=== PATIENT | female | born 1960 | race Caucasian/White ===

== ENCOUNTER 2016-05-13 17:34 | Inpatient (IN) ==
[2016-05-13] MEDS ORDERED: ASPIRIN PO ONE (18:11)
[2016-05-13] MEDS ORDERED: G.I. COCKTAIL PO ONE (18:11)
--- NOTE | 2016-05-13 18:17 | PROVIDER DOCUMENTATION ---
HPI-Chest Pain <Julio Simms - Last Filed: 05/13/16 21:02> - General Source: patient, family - History of Present Illness-CP Location: reports: central Chest Pain Radiation: reports: shoulders, back Quality of Pain: reports: dull Severity in ED: mild Onset/Duration: this morning Timing: still present, constant, getting worse Context/Activities at Onset: reports: none. denies: light activity, moderate activity, vigorous activity, recent emotional stress, recent physical stress, recent trauma history, possible bad food, cold exposure, eating, out of country travel, rest, sleep, sexual activity, other Modifying Factors: improves with: nothing. worse with: analgesics, antacids, breathing, cold/heat therapy, coughing, defecating, eating, exercise, immobilization, lying down, massage, movement, other medication, palpation, rest , urinating, vomiting, other Associated Symptoms: reports: back pain, dizziness, fatigue, nausea, vomiting, weakness. denies: abdominal pain, diaphoresis, edema, fever/chills, headache, heartburn, rash, shortness of breath, swelling/lump in chest, syncope Nitro Today/Relief: no nitro taken today Aspirin Treatment Today: no aspirin today, provided by ED Prior Chest Pain/Cardiac Workup: reports: heart attack Similar Symptoms Previously?: Yes Recently Seen Here or By Another Healthcare Provider: No <Walker العراقي - Last Filed: 05/13/16 22:51> - General Chief Complaint: Weakness Stated Complaint: WEAKNESS/DIZZINESS Time Seen by Provider: 05/13/16 17:59 Allergies/Adverse Reactions: Patient Allergies Allergy/AdvReac Type Severity Reaction Status Date / Time ketorolac tromethamine * Allergy Intermediate DIZZINESS Verified 02/15/15 18:38 [From Toradol] Sulfa (Sulfonamide Allergy Intermediate RASH Verified 02/15/15 18:38 Antibiotics) Iodinated Contrast Media - Allergy Unknown ANAPHYLAXIS Verified 02/15/15 18:38 Oral and Home Medications: Aspirin 81 mg PO DAILY 05/01/12 Lisinopril/Hydrochlorothiazide [Lisinopril-Hctz 20-12.5 mg Tab] 1 tab PO QAM Metformin E.r. [Glucophage Xr] 500 mg PO DIRECTED 05/13/16 Ranitidine [Zantac] 150 mg PO DAILY 05/13/16 - History of Present Illness-CP Nature of Presenting Problem: 55 year old WF presents with c/o weakness, fatigue, malaise for 2-3 days with development of a dull chest pain that was present upon awakening. pt reports the chest pain is dull, constant, worse at times, no change with inspiration/ expiration, movement/palpation. pt reports she has a feeling of her "heart racing during the worse periods." with associated dizziness. pt reports the chest pain radiates to between her shoulder blades, bilateral jaws and left arm. pt reports this is the same discomfort she had in 2011 when she had an ME with 2 stents placed. additional complaints include a 50 lb weight loss in the last month, without intention. denies bloody, tarry, black stools, blood in emesis. pt reports intermittent vomiting over the last 3 days. pt has a history of chronic mid back pain, however the pain between her shoulder is different than her chronic pain. pt also (Walker العراقي) Review of Systems - Adult - REVIEW OF SYSTEMS - ADULT Constitutional: reports: see HPI, fatique, weight loss. denies: chills, fever Eyes: reports: no symptoms reported. denies: discharge, decreased vision, blurred vision, double vision Ears, Nose, Mouth & Throat: reports: no symptoms reported. denies: ear discharge, ear pain, nose pain, loose teeth, throat pain, throat swelling Cardiovascular: reports: see HPI, chest pain, palpitations. denies: edema, heart murmur, irregular heart rate, orthopnea, poor circulation, PND, syncope Respiratory: reports: no symptoms reported. denies: chronic cough, cough, shortness of breath, wheezing Gastrointestinal: reports: see HPI, nausea, poor appetite, vomiting. denies: abdominal pain, difficulty swallowing, frequent heartburn Genitourinary: reports: no symptoms reported. denies: dysuria, hematuria, urgency Musculoskeletal: reports: see HPI, back pain. denies: bone pain, frequent leg cramps, joint pain, joint swelling, muscle aches, muscle weakness, neck pain Integumentary: reports: no symptoms reported. denies: hives, itching, rash Neurological: reports: see HPI, dizziness/vertigo. denies: ataxia, headache/ migraines, loss of balance, numbness, paresthesia, seizure, slurred speech, syncope, tremors Psychiatric: reports: no symptoms reported, anxiety, anti-depressant use, depression, panic attacks. denies: alcohol/drug dependence, suicidal thoughts Endocrine: reports: no symptoms reported. denies: cold intolerance, heat intolerance, increased hunger, increased thirst, polyuria Hematologic/Lymphatic: reports: no symptoms reported. denies: blood clots, prolonged bleeding Allergic/Immunologic: reports: no symptoms reported. denies: frequent infections All Other Systems: Reviewed and Negative <Walker العراقي - Last Filed: 05/13/16 22:51> Past History - Adult - PAST MEDICAL HISTORY-ADULT Review of Records: reports: Old Records Reviewed, Nursing Assessment Review, Medications Reviewed, Social history reviewed & non-contributory. Major Childhood Illnesses: reports: denies history Cardiovascular: reports: cardiac disease, CAD, HTN, hyperlipidemia, ME Respiratory: reports: denies history Gastrointestinal: reports: GERD Obstetrical/Gynecological: reports: denies history Genitourinary: reports: denies history Musculoskeletal: reports: denies history Neurological: reports: denies history Endocrine/Immune: reports: denies history Other Conditions: reports: denies history - PRIOR SURGERIES/PROCEDURES Surgical/Procedure History: reports: appendectomy, cholecystectomy, cardiac stent, hysterectomy, , orthopedic (extremity) (right ankle), other ( reconstructive facial surgery) - PRIOR HOSPITALIZATIONS Prior Hospitalizations: reports: for similar symptoms - IMMUNIZATION STATUS Childhood Immunizations: See Nurse Assessment Flu Vaccine: See Nurse Assessment - FAMILY HISTORY Family History: reviewed, not pertinent - SOCIAL HISTORY Smoking: quit greater than 1 year, cigarettes Substance Use: none/never Alcohol Use Frequency: never <Walker العراقي - Last Filed: 05/13/16 22:51> Physical Exam-General - PHYSICAL EXAM-ADULT Initial Vital Signs Reviewed: Yes - CONSTITUTIONAL General Appearance: appears well, alert, no apparent distress. negative: mild distress, moderate distress, severe distress, lethargic, slow to respond, obtunded, combative - EYES Eyes: pink conjunctivae. negative: conjuctival exudate, pale conjunctivae, sclera injected, scleral icterus, subconjunctival hemorrhage - HEAD, EARS, NOSE, MOUTH & THROAT HENMT: normocephalic/atraumatic, moist mucous membranes, normal ENT inspection - NECK Neck: non-tender, full range of motion, supple, normal inspection. negative: limited range of motion, tender lateral, tender midline - RESPIRATORY Respiratory: chest non-tender, lungs clear, normal breath sounds, no pleuratic chest pain, no respiratory distress, no accessory muscle use. negative: respiratory distress, decreased breath sounds, accessory muscle use, crackles, rales, rhonchi, stridor, wheezing - CARDIOVASCULAR Cardiovascular: normal peripheral pulses, regular rate, rhythm, no edema. negative: bradycardia, tachycardia, diastolic murmur, systolic murmur - CHEST (BREASTS) Chest/Breast: no tenderness. negative: tenderness - GASTROINTESTINAL (ABDOMEN) Abdominal Exam: normal bowel sounds, soft, tenderness (epigastric). negative: non tender, distended, guarding, rigid, rebound, McBurney's point tenderness, Hines's sign, obturator sign, psoas, Rovsing's sign - GENITOURINARY Female Genitalia/Pelvic Exam: deferred Rectal Exam: deferred Hemoccult Exam: deferred - LYMPHATIC Lymphatic: no adenopathy - MUSCULOSKELETAL Back Exam: normal inspection, no CVA tenderness, no vertebral tenderness. negative: CVA tenderness, decreased range of motion, vertebral tenderness Extremity: normal range of motion, non-tender, normal gait, normal inspection, no pedal edema, no calf tenderness, normal capillary refill. negative: deformity, erythema, inflammation Peripheral Pulses: radial (R): 3+, radial (L): 3+, dorsalis-pedis (R): 3+, dorsalis-pedis (L): 3+ - SKIN Integumentary: normal color, normal turgor, warm/dry. negative: pallor, petechiae, purpura, rash - NEUROLOGIC Neurologic: grossly normal, no motor/sensory deficits. negative: abnormal gait , aphasia, facial droop, focal weakness, motor weakness, sensory deficit - PSYCHIATRIC Psych/Mental Status: normal mood/affect, normal thought content, normal thought process, oriented x 3 <Walker العراقي - Last Filed: 05/13/16 22:51> Progress - EKG 1 Time of EKG reading by physician:: 20:58 EKG Read and Signed by:: Conrad Gottlieb EKG Interpretation (*Must complete 3 of following elements*): Abnormal Rate: 58 Rhythm: SINUS BRADYCARDIA [place]: normal QRS: normal [place] Interval: normal ST Wave: normal <Julio Simms - Last Filed: 05/13/16 21:02> - REASSESSMENT Reassessment #1 Time Reassessed: 20:44 Status: unchanged - XRAY 1 XRAY Study: Chest Impression: Normal (per Dr. Gottlieb) - CONSULTS/PCP/HOSPITALIST Notification #1 *Consult/PCP/Hospitalist*: Dr. Wallace Time Discussed: 21:40 Consult Disposition: Admit (will evaluate in the AM) <Walker العراقي - Last Filed: 05/13/16 22:51> - PLAN OF CARE/RESULTS Progress/Plan/Lab Results: Laboratory Tests 05/13/16 05/13/16 05/13/16 16:30 16:30 16:30 WBC RBC Hgb Hct MCV MCH MCHC RDW Std Deviation Plt Count MPV Immature Gran % (Auto) Neut % (Auto) Lymph % (Auto) [place] % (Auto) Eos % (Auto) Baso % (Auto) Immature Gran # (Auto) Neut # Lymph # [place] # Eos # Baso # D-Dimer Sodium 132 L Potassium 3.8 Chloride 98 Carbon Dioxide 24 L Anion Gap 10 BUN 9 Creatinine 0.8 Estimated GFR/1.73 m2 > 60 BUN/Creatinine Ratio 11 Glucose 109 H Calculated Osmolality 264 Calcium 9.0 Magnesium 2.0 Total Bilirubin 0.30 AST 31 H ALT 29 Alkaline Phosphatase 73 Creatine Kinase 52 Troponin T < 0.010 Amy-B-Vejmsvgwlah Pept 49 Total Protein 7.0 Albumin 3.9 Globulin 3.0 Albumin/Globulin Ratio 1.0 Amylase Lipase TSH 05/13/16 05/13/16 05/13/16 16:30 16:30 16:30 WBC 7.13 RBC 4.71 Hgb 15.0 Hct 43.8 MCV 93.0 MCH 31.8 H MCHC 34.2 RDW Std Deviation 12.9 Plt Count 224 MPV 8.8 Immature Gran % (Auto) 0.1 Neut % (Auto) 56.8 Lymph % (Auto) 34.5 [place] % (Auto) 6.2 Eos % (Auto) 2.0 Baso % (Auto) 0.4 Immature Gran # (Auto) 0.01 Neut # 4.05 Lymph # 2.46 [place] # 0.44 Eos # 0.14 Baso # 0.03 D-Dimer Sodium Potassium Chloride Carbon Dioxide Anion Gap BUN Creatinine Estimated GFR/1.73 m2 BUN/Creatinine Ratio Glucose Calculated Osmolality Calcium Magnesium Total Bilirubin AST ALT Alkaline Phosphatase Creatine Kinase Troponin T Jpe-F-Utfrmtiammg Pept Total Protein Albumin Globulin Albumin/Globulin Ratio Amylase 59 Lipase 55 TSH 0.87 05/13/16 18:30 WBC RBC Hgb Hct MCV MCH MCHC RDW Std Deviation Plt Count MPV Immature Gran % (Auto) Neut % (Auto) Lymph % (Auto) [place] % (Auto) Eos % (Auto) Baso % (Auto) Immature Gran # (Auto) Neut # Lymph # [place] # Eos # Baso # D-Dimer 0.37 Sodium Potassium Chloride Carbon Dioxide Anion Gap BUN Creatinine Estimated GFR/1.73 m2 BUN/Creatinine Ratio Glucose Calculated Osmolality Calcium Magnesium Total Bilirubin AST ALT Alkaline Phosphatase Creatine Kinase Troponin T [id number] Pept Total Protein Albumin Globulin Albumin/Globulin Ratio Amylase Lipase TSH Orders Category Date Time Status Cardiac Monitoring DIRECTED Care 05/13/16 17:52 Active Oxygen Therapy- ED Nursing DIRECTED Care 05/13/16 17:52 Active Saline Loc NOW Care 05/13/16 17:52 Active CHEST-2 VIEWS [RAD] Stat Exams 05/13/16 17:52 Taken AMYLASE [CHEM] Stat Lab 05/13/16 16:30 Completed CBC WITH ELECTRONIC DIFF [HEME] Stat Lab 05/13/16 16:30 Completed CK PROFILE [SP CHEM] Stat Lab 05/13/16 16:30 Completed CK PROFILE [SP CHEM] Stat Lab 05/13/16 20:35 Ordered COMPREHENSIVE METABOLIC PANEL [CHEM] Stat Lab 05/13/16 16:30 Com[address] D-DIMER PL [COAG] Routine Lab 05/13/16 18:30 Completed LIPASE [CHEM] Stat Lab 05/13/16 16:30 Completed MAGNESIUM [CHEM] Stat Lab 05/13/16 16:30 Completed PRO B-NATRIURETIC PEPTIDE Stat Lab 05/13/16 16:30 Completed TROPONIN T Stat Lab 05/13/16 16:30 Completed TROPONIN T Stat Lab 05/13/16 20:35 Ordered TSH Stat Lab 05/13/16 16:30 Completed UA NIMS W/REFLEX CULT PL [URINALYSIS] Stat Lab 05/13/16 18:21 Ordered UDS [URINE DRUG SCREEN PL] Stat Lab 05/13/16 18:21 Ordered Aspirin Med 05/13/16 18:11 Discontinued 325 mg PO NOW ONE Lido/Jones Alk/Al&mg Hydrox [G.i. Cocktail] Med 05/13/16 18:11 Discontinued 30 ml PO NOW ONE Morphine Med 05/13/16 20:41 Discontinued 4 mg IV NOW ONE Ondansetron [Zofran] Med 05/13/16 20:41 Discontinued 4 mg IV NOW ONE EKG [EKG] Stat Ther 05/13/16 17:52 Ordered EKG [EKG] Stat Ther 05/13/16 20:42 Ordered Vital Signs - 24 hr 05/13/16 05/13/16 17:41 21:02 Temperature 98 F Pulse Rate 93 H 65 Respiratory 18 18 Rate Blood Pressure 127/72 105/059 O2 Sat by Pulse 96 100 Oximetry (Walker العراقي) Departure <Julio Simms - Last Filed: 05/13/16 21:02> - Departure Time of Disposition Order: 21:46 Certified Medical Emergency: Emergent <Walker العراقي - Last Filed: 05/13/16 22:51> - Departure DIAGNOSIS: Chest pain Qualifiers: Chest pain type: unspecified Qualified Code(s): R07.9 - Chest pain, unspecified Disposition: ADMITTED INPATIENT 09 Condition: Stable Attestation - Physician/ Mid-level Attestation Patient care was provided by Mid-level provider (PARA PROFESSIONAL/PA):: Yes Mid-level provider:: Walker العراقي Mid-level documentation review:: The Mid-level provider documentation, treatment plan and medical decision making was reviewed by the physician who agrees with all treatment and medical decision making by the P. <Walker العراقي - Last Filed: 05/13/16 22:51> Physician Attestation
[2016-05-13 18:44] LABS: MANUAL DIFF NEEDED? NO
[2016-05-13 18:45] LABS: BASO% 0.4 % (0.0-0.8); EOS# 0.14 X1000 (0.0-0.7); HEMATOCRIT 43.8 % (37.0-47.0); IMM GRAN# 0.01 X1000 (0.0-0.04); IMM GRAN% 0.1 % (0.0-0.5); LYMPH# 2.46 X1000 (1.2-3.4); LYMPH% 34.5 % (20.5-51.1); MCH 31.8 PG (27-31); MCHC 34.2 g/dL (33-37); MONO# 0.44 X1000 (0.11-0.59); MONO% 6.2 % (1.7-9.3); MPV 8.8 FL (7.4-10.4); NEUT% 56.8 % (42.2-75.2); PLT 224 X1000 (130-400); RBC 4.71 XMIL (4.2-5.4)
[2016-05-13 19:17] LABS: AMYLASE 59 U/L (20-200); LIPASE 55 U/L (13-60)
[2016-05-13 19:21] LABS: AGAP 10; ALBUMIN 3.9 g/dL (3.5-5.0); ALKALINE PHOSPHATASE 73 U/L (32-104); BUN 9 mg/dL (8-22); CHLORIDE 98 mmol/L (98-107); CK PROFILE 52 U/L (24-173); COSMO 264; GOT 31 U/L (10-30); GPT 29 U/L (10-36); POTASSIUM 3.8 mmol/L (3.5-5.1); SODIUM 132 mmol/L (136-145); TCO2 24 mmol/L (25-35)
[2016-05-13] MEDS ORDERED: MORPHINE IV ONE (20:41)
[2016-05-13] MEDS ORDERED: ZOFRAN IV ONE (20:41)
[2016-05-13] MEDS ORDERED: GLUCOPHAGE XR PO SCH (23:42)
[2016-05-13 23:45] LABS: UR AMPHETAMINES QUAL NONE DETECTED (NONE DETECT); UR BARBITUATES QUAL NONE DETECTED (NONE DETECT); UR BENZODIAZEPIN QUAL NONE DETECTED (NONE DETECT); UR COCAINE QUAL NONE DETECTED (NONE DETECT); UR MDMA QUAL NONE DETECTED (NONE DETECT); UR METHADONE QUAL NONE DETECTED (NONE DETECT); UR METHAMPHETAMINE QUAL PRESUMPTIVE POSITIVE (NONE DETECT)
[2016-05-13 23:46] LABS: UR CANNABINOIDS QUAL NONE DETECTED (NONE DETECT); UR OPIATES QUAL NONE DETECTED (NONE DETECT); UR OXYCODONE QUAL NONE DETECTED (NONE DETECT); UR PCP QUAL NONE DETECTED (NONE DETECT); UR TCA QUAL NONE DETECTED (NONE DETECT)
[2016-05-13 23:56] LABS: BILIRUBIN URINE NEGATIVE (NEGATIVE); BLOOD URINE NEGATIVE (NEGATIVE); CLARITY CLEAR (CLEAR); COLOR YELLOW; GLUCOSE URINE NEGATIVE (NEGATIVE); LEUKOCYTES URINE TRACE (NEGATIVE); NITRITE URINE NEGATIVE (NEGATIVE); PROTEIN URINE NEGATIVE (NEGATIVE); SP GRAVITY URINE 1.015; UROBILINOGEN URINE NORMAL
[2016-05-13 23:57] LABS: URINE CULTURE PL NEEDED? YES; URINE EPITHELIAL CELLS <10 /HPF (<10); URINE RBC <10 /HPF (<10); URINE SOURCE CLEAN CATCH; URINE WBC <10 /HPF (<10)
--- NOTE | 2016-05-14 00:14 | EKG Report ---
Test Performed on : 05/13/2016 8:57:01 PM Test Reason : CP Blood Pressure : / mmHG Vent. Rate : 058 BPM Atrial Rate : 058 BPM P-R Int : 158 ms QRS Dur : 088 ms QT Int : 412 ms P-R-T Axes : 052 053 050 degrees QTc Int : 404 ms Sinus bradycardia. Otherwise normal ECG When compared with ECG of 09-SEP-2015 22:36, Vent. rate has decreased BY 38 BPM Unconfirmed Result
[2016-05-14 04:43] VITALS: BP 100/55
[2016-05-14] MEDS ORDERED: MORPHINE IV PRN (05:55)
--- NOTE | 2016-05-14 06:09 | EKG Report ---
Test Performed on : 05/14/2016 05:12:19 AM Test Reason : CP Blood Pressure : / mmHG Vent. Rate : 073 BPM Atrial Rate : 073 BPM P-R Int : 162 ms QRS Dur : 090 ms QT Int : 412 ms P-R-T Axes : 050 058 045 degrees QTc Int : 453 ms Normal sinus rhythm. Normal ECG When compared with ECG of 14-MAY-2016 00:38, (Unconfirmed) No significant change was found Confirmed by Sukhjinder Louise MD ([id number]) on 05/15/2016 11:53:36 PM
--- NOTE | 2016-05-14 06:09 | EKG Report ---
Test Performed on : 05/14/2016 00:38:40 AM Test Reason : CP Blood Pressure : / mmHG Vent. Rate : 072 BPM Atrial Rate : 072 BPM P-R Int : 166 ms QRS Dur : 090 ms QT Int : 402 ms P-R-T Axes : 068 058 057 degrees QTc Int : 440 ms Normal sinus rhythm. Normal ECG When compared with ECG of 13-MAY-2016 20:57, (Unconfirmed) No significant change was found Confirmed by Sukhjinder Louise MD ([id number]) on 05/15/2016 11:53:47 PM
[2016-05-14] MEDS ORDERED: PRINIVIL PO SCH (09:00)
[2016-05-14] MEDS ORDERED: ZANTAC PO SCH (09:00)
[2016-05-14] MEDS ORDERED: LISINOPRIL PO SCH (09:00)
[2016-05-14] MEDS ORDERED: ASPIRIN PO SCH (09:00)
[2016-05-14] MEDS ORDERED: [UNRECOGNIZED DRUG - OTHER] PO SCH (09:00)
[2016-05-14] MEDS ORDERED: HYDROCHLOROTHIAZIDE PO SCH ×2 (09:00)
--- NOTE | 2016-05-14 11:44 | Diag Imaging Result Document ---
PROCEDURE NAME: CHEST-2 VIEWS - 05/13/2016 TWO VIEWS OF THE CHEST: FINDINGS: There is COPD. Compared to 09/10/2015 there has been no significant change in the appearance of the chest. IMPRESSION: COPD.
[2016-05-14] MEDS ORDERED: MELATONIN PO SCH (21:00)
== END 2016-05-14 06:00 | disposition left against medical advice (07) | DRG 313 ==
LOC: P.ED 17:34 → P.MEDSURG 21:58
PROVIDERS: ATTEND Internal Medicine
DX: R07.89 Other chest pain (principal); I25.2 Old myocardial infarction; I10 Essential (primary) hypertension; I25.10 Atherosclerotic heart disease of native coronary artery without angina pectoris; G89.29 Other chronic pain; Z79.82 Long term (current) use of aspirin; Z79.899 Other long term (current) drug therapy; Z79.84 Long term (current) use of oral hypoglycemic drugs; M54.6 Pain in thoracic spine; E78.5 Hyperlipidemia, unspecified; K21.9 Gastro-esophageal reflux disease without esophagitis; Z95.5 Presence of coronary angioplasty implant and graft; Z87.891 Personal history of nicotine dependence
CPT/HCPCS: 71020; 80053; 81001; 82150; 82550; 83690; 83735; 83880; 84443; 84484; 85025; 85379; 87088; 93005; 93010; 93306; 96374; 96375; G0477; J2270; J2405

== ENCOUNTER 2018-09-10 19:36 | Observation (INO) ==
[2018-09-10] MEDS ORDERED: ASPIRIN PO ONE (20:16)
[2018-09-10] MEDS ORDERED: ZOFRAN IV ONE (20:16)
[2018-09-10] MEDS ORDERED: DILAUDID IV ONE (20:17)
--- NOTE | 2018-09-10 20:50 | Diag Imaging Result Doc PS360 ---
EXAM: CHEST-1 VIEW HISTORY: chest pain TECHNIQUE: Chest single view COMPARISON: 06/04/2018 FINDINGS: The lungs are hyperexpanded. The heart is not enlarged. The vessels are not distended. There are no infiltrates. No effusion identified. IMPRESSION: Emphysema Electronically signed by Silvino Garces 09/10/2018 8:48 PM
[2018-09-10 21:30] LABS: BASO# 0.02 X1000 (0.0-0.2); BASO% 0.2 % (0.0-0.8); EOS% 0.8 % (0.0-10.0); HEMATOCRIT 43.4 % (37.0-47.0); HEMOGLOBIN 14.7 g/dL (12.0-16.0); IMM GRAN# 0.04 X1000 (0.0-0.04); IMM GRAN% 0.3 % (0.0-0.5); LYMPH# 3.26 X1000 (1.2-3.4); LYMPH% 25.6 % (20.5-51.1); MCH 31.5 PG (27-31); MCHC 33.9 g/dL (33-37); MCV 92.9 FL (81-99); MONO# 0.77 X1000 (0.11-0.59); MPV 9.5 FL (7.4-10.4); NEUT# 8.56 X1000 (1.4-6.5); NEUT% 67.1 % (42.2-75.2); PLT 222 X1000 (130-400); RBC 4.67 XMIL (4.2-5.4); RDW 12.9 % (11.5-14.5); WBC 12.75 X1000 (4.8-10.8)
[2018-09-10 21:34] LABS: INR 0.89; PROTIME 12.8 Seconds (11.0-16.0)
[2018-09-10 21:38] LABS: PTT HEPARIN PROTOCOL 30.1 Seconds
[2018-09-10 21:52] LABS: ALB/GLOB RATIO 1.6; CALCIUM 8.7 mg/dL (8.8-10.2); POTASSIUM 4.2 mmol/L (3.5-5.1); TOTAL BILIRUBIN 0.39 mg/dL (0.20-1.00); TOTAL PROTEIN 6.5 g/dL (6.3-8.3)
--- NOTE | 2018-09-10 22:23 | PROVIDER DOCUMENTATION ---
This chart was entered by Wes Tavarez Scribe, acting as scribe for Hemal Barth MD. HPI-Chest Pain - General Chief Complaint: Chest Pain Stated Complaint: CHEST/BACK/JAW PAIN/HISTORY OF HEART PROBLEMS Time Seen by Provider: 09/10/18 20:02 Source: patient Allergies/Adverse Reactions: Patient Allergies Allergy/AdvReac Type Severity Reaction Status Date / Time ketorolac tromethamine * Allergy Intermediate DIZZINESS Verified 09/10/18 21:30 [From Toradol] Sulfa (Sulfonamide Allergy Intermediate RASH Verified 09/10/18 21:30 Antibiotics) Iodinated Contrast- Oral and Allergy Unknown ANAPHYLAXIS Verified 09/10/18 21:30 IV Dye Home Medications: Home Medication List Medication Instructions Recorded Confirmed Last Taken Type Aspirin 81 mg PO QPM 05/01/12 09/10/18 09/09/18 History ATORVAstatin [Lipitor] 40 mg PO QHS tablet 08/30/17 09/10/18 09/09/18 Rx Clonazepam [Klonopin] 1 mg PO TID tablet 08/30/17 09/10/18 09/09/18 Rx Hydrocodone/APAP 7.5 mg/325 mg 1 each PO TID PRN PRN 30 Days #90 08/30/17 09/10/18 09/08/18 Rx [[place]-7.5] tablet LISINOpril/HCTZ [Prinzide 1 each PO DAILY tablet 08/30/17 09/10/18 09/09/18 Rx 20/12.5MG] Ranitidine [Zantac] 150 mg PO BID tablet 08/30/17 09/10/18 09/09/18 Rx Albuterol Sulfate Inhaler 09/10/18 09/10/18 History [Ventolin Hfa] Cetirizine HCl 09/10/18 09/09/18 History Escitalopram Oxalate [Lexapro] 10 mg PO 09/10/18 09/09/18 History Fluticasone 50 Mcg Nasal [place] 09/10/18 09/09/18 History [Flonase] Methocarbamol 2-4XDAY PRN PRN 09/10/18 Unknown History Tizanidine HCl 09/10/18 09/09/18 History - History of Present Illness-CP Nature of Presenting Problem: Pt is a 58 y/o F presents to the ED with chest pain the center/left radiating to her left jaw and left arm. She report center back pain. She report similar pain back in 2012 where she had stents placed. She explains that she had 1 vessel that was not bad enough to stent at that time. Location: reports: substernal, central Chest Pain Radiation: reports: jaw, arms Quality of Pain: reports: aching Severity in ED: severe Onset/Duration: 1-3 hours ago Timing: still present Context/Activities at Onset: reports: none Modifying Factors: improves with: nothing Associated Symptoms: reports: back pain. denies: diaphoresis, nausea, shortness of breath, vomiting Nitro Today/Relief: no nitro taken today Aspirin Treatment Today: no aspirin today, 325 mg x 1, provided by ED Similar Symptoms Previously?: Yes (2011) Recently Seen Here or By Another Healthcare Provider: No Review of Systems - Adult - REVIEW OF SYSTEMS - ADULT Constitutional: denies: chills Eyes: reports: no symptoms reported Ears, Nose, Mouth & Throat: reports: no symptoms reported Cardiovascular: reports: chest pain. denies: edema, orthopnea, palpitations Respiratory: denies: cough, shortness of breath Gastrointestinal: denies: abdominal pain, nausea, vomiting Genitourinary: reports: no symptoms reported Musculoskeletal: reports: back pain. denies: neck pain Integumentary: reports: no symptoms reported Neurological: denies: dizziness/vertigo, headache/migraines Psychiatric: reports: anxiety Endocrine: reports: no symptoms reported Hematologic/Lymphatic: reports: no symptoms reported Allergic/Immunologic: reports: no symptoms reported All Other Systems: Reviewed and Negative Past History - Adult - PAST MEDICAL HISTORY-ADULT Review of Records: reports: Old Records Reviewed, Nursing Assessment Review, Medications Reviewed Major Childhood Illnesses: reports: denies history Cardiovascular: reports: cardiac disease, CAD, HTN, hyperlipidemia, [place] Respiratory: reports: denies history Gastrointestinal: reports: GERD Obstetrical/Gynecological: reports: denies history Genitourinary: reports: denies history Musculoskeletal: reports: denies history Neurological: reports: denies history Endocrine/Immune: reports: denies history Other Conditions: reports: denies history - PRIOR SURGERIES/PROCEDURES Surgical/Procedure History: reports: appendectomy, cholecystectomy, cardiac s tent, hysterectomy, , orthopedic (extremity), other - PRIOR HOSPITALIZATIONS Prior Hospitalizations: reports: for similar symptoms - IMMUNIZATION STATUS Childhood Immunizations: See Nurse Assessment Flu Vaccine: See Nurse Assessment - FAMILY HISTORY Family History: reviewed, not pertinent - SOCIAL HISTORY Smoking: cigarettes Living Situation: family Physical Exam-General - PHYSICAL EXAM-ADULT Initial Vital Signs Reviewed: Yes - CONSTITUTIONAL General Appearance: alert, no apparent distress, anxious - EYES Eyes: PERRL/EOMI, pink conjunctivae - HEAD, EARS, NOSE, MOUTH & THROAT HENMT: moist mucous membranes, normal ENT inspection, pharynx normal - NECK Neck: non-tender, full range of motion, supple, normal inspection - RESPIRATORY Respiratory: lungs clear, normal breath sounds, no pleuratic chest pain, no respiratory distress, no accessory muscle use - CARDIOVASCULAR Cardiovascular: normal peripheral pulses, tachycardia - GASTROINTESTINAL (ABDOMEN) Abdominal Exam: normal bowel sounds, non tender, soft - MUSCULOSKELETAL Back Exam: normal inspection, no CVA tenderness, no vertebral tenderness Extremity: normal range of motion, non-tender, normal gait, normal inspection - SKIN Integumentary: normal color, normal turgor, warm/dry - NEUROLOGIC Neurologic: grossly normal, no motor/sensory deficits - PSYCHIATRIC Psych/Mental Status: normal mood/affect, normal thought content, normal thought process, oriented x 3 - HEART Score HEART Score: History: Highly Suspicious HEART Score: ECG: Normal HEART Score: Age: 45-65 Years HEART Score: Risk Factors for Atherosclerotic Disease: 1 or 2 Risk Factors HEART Score: Troponin: < or = Normal Limit Total HEART Score:: 4 Progress - PLAN OF CARE/RESULTS Progress/Plan/Lab Results: Vital Signs - 8 hr 09/10/18 19:38 09/10/18 21:52 Temperature 98.0 F Pulse Rate 100 H 94 H Respiratory Rate 18 20 Blood Pressure 118/82 149/88 O2 Sat by Pulse Oximetry 95 97 Laboratory Results - last 24 hr 09/10/18 09/10/18 09/10/18 20:54 21:07 21:07 WBC 12.75 H RBC 4.67 Hgb 14.7 Hct 43.4 MCV 92.9 MCH 31.5 H MCHC 33.9 RDW Std Deviation 12.9 Plt Count 222 MPV 9.5 Immature Gran % (Auto) 0.3 Neut % (Auto) 67.1 Lymph % (Auto) 25.6 [place] % (Auto) 6.0 Eos % (Auto) 0.8 Baso % (Auto) 0.2 Immature Gran # (Auto) 0.04 Neut # (Auto) 8.56 H Lymph # (Auto) 3.26 [place] # (Auto) 0.77 H Eos # (Auto) 0.10 Baso # (Auto) 0.02 PT INR PTT (Heparin Protocol) Sodium 141 Potassium 4.2 Chloride 104 Carbon Dioxide 25 Anion Gap 12 BUN 8 Creatinine 1.0 H Estimated GFR/1.73 m2 57 BUN/Creatinine Ratio 8 Glucose 102 Calculated Osmolality 280 Calcium 8.7 L Total Bilirubin 0.39 AST 31 H ALT 27 Alkaline Phosphatase 84 Troponin T Ovl-I-Dtjauvhkqeh Pept 74 Total Protein 6.5 Albumin 4.0 Globulin 2.5 Albumin/Globulin Ratio 1.6 09/10/18 09/10/18 21:07 21:07 WBC RBC Hgb Hct MCV MCH MCHC RDW Std Deviation Plt Count MPV Immature Gran % (Auto) Neut % (Auto) Lymph % (Auto) [place] % (Auto) Eos % (Auto) Baso % (Auto) Immature Gran # (Auto) Neut # (Auto) Lymph # (Auto) [place] # (Auto) Eos # (Auto) Baso # (Auto) PT 12.8 INR 0.89 PTT (Heparin Protocol) 30.1 Sodium Potassium Chloride Carbon Dioxide Anion Gap BUN Creatinine Estimated GFR/1.73 m2 BUN/Creatinine Ratio Glucose Calculated Osmolality Calcium Total Bilirubin AST ALT Alkaline Phosphatase Troponin T < 0.010 Vpo-O-Aissextlysi Pept Total Protein Albumin Globulin Albumin/Globulin Ratio Orders Category Date Time Status CHEST-1 VIEW [RAD] Stat Exams 09/10/18 20:05 Completed BNP [PRO B-NATRIURETIC PEPTIDE] Stat Lab 09/10/18 21:07 Completed CBC WITH ELECTRONIC DIFF [HEME] Stat Lab 09/10/18 20:54 Completed COMPREHENSIVE METABOLIC PANEL [CHEM] Stat Lab 09/10/18 21:07 Completed PT [PROTIME WITH INR] [COAG] Stat Lab 09/10/18 21:07 Completed PTT HEPARIN PROTOCOL [COAG] Stat Lab 09/10/18 21:07 Completed TROPONIN T Stat Lab 09/10/18 21:07 Completed URINALYSIS [URINALYSIS] Stat Lab 09/10/18 20:04 Uncollected Aspirin Med 09/10/18 20:16 Discontinued 325 mg PO NOW ONE Hydromorphone [Dilaudid] Med 09/10/18 20:17 Discontinued 1 mg IV NOW ONE Ondansetron [Zofran] Med 09/10/18 20:16 Discontinued 4 mg IV NOW ONE EKG [EKG] Stat Ther 09/10/18 19:48 Ordered Result Diagrams: 09/10/18 20:54 09/10/18 21:07 - EKG 1 Time of EKG reading by physician:: 19:43 EKG Read and Signed by:: Hemal Barth EKG Interpretation (*Must complete 3 of following elements*): Normal Rate: 99 Rhythm: NSR [place]: normal QRS: normal [place] Interval: normal ST Wave: normal - XRAY 1 XRAY Study: Chest Impression: Abnormal ( EXAM: CHEST-1 VIEW HISTORY: chest pain TECHNIQUE: Chest single view COMPARISON: 06/04/2018 FINDINGS: The lungs are hyperexpanded. The heart is not enlarged. The vessels are not distended. There are no infiltrates. No effusion identified. IMPRESSION: Emphysema Electronically signed by Silvino Garces 09/10/2018 8:48 PM 09/10/182047 Interpreting Physician: Silvino Garces MD Dictated Date/Time: 09/10/182046 cc: Hemal Barth MD; David Francois MD) - CONSULTS/PCP/HOSPITALIST Notification #1 *Consult/PCP/Hospitalist*: Hospitalist- Dr Holm Time Discussed: 22:17 Reason/Comments: admission Consult Disposition: Will see in ED (accepts) Departure - Departure Date of Disposition Decision: 09/10/18 Time of Disposition Decision: 22:22 DIAGNOSIS: Chest pain Disposition: ADMITTED INPATIENT 09 Certified Medical Emergency: Emergent Condition: Fair Referrals and Follow-Ups: David Francois MD [Primary Care Provider] - - Critical Care Note This patient required my direct & personal management of CC.: No Attestation - Physician/ INKA Attestation Patient care was provided by Advanced Practice Provider:: No The physician spent face to face time with patient:: Yes Advanced Practice Provider documentation review:: Supervising physician onsite and consulted in the evaluation and care of this patient. The physician did have a face to face encounter with the patient. This chart was documented by the indicated scribe, (Wes Tavarez Scribe) and accurately reflects the services I performed and decisions made by me, Hemal Barth MD, as attested by the provider's signature.
[2018-09-10 22:58] LABS: URINE SOURCE CLEAN CATCH
[2018-09-10 23:30] LABS: BILIRUBIN URINE NEGATIVE (NEGATIVE); BLOOD URINE NEGATIVE (NEGATIVE); COLOR YELLOW; GLUCOSE URINE NEGATIVE (NEGATIVE); KETONE URINE NEGATIVE (NEGATIVE); LEUKOCYTES URINE NEGATIVE (NEGATIVE); NITRITE URINE NEGATIVE (NEGATIVE); PH URINE 6.5; PROTEIN URINE NEGATIVE (NEGATIVE); SP GRAVITY URINE 1.019; TURBIDITY URINE CLEAR (CLEAR); UR EPITHELIAL CELLS <10 /HPF (<10); URINE BACTERIA NEGATIVE /HPF; URINE RBC <10 /HPF (<10); URINE WBC <10 /HPF (<10); UROBILINOGEN URINE 2 mg/dL (NORMAL)
[2018-09-11] MEDS ORDERED: NITROGLYCERIN SL PRN (01:21)
[2018-09-11] MEDS ORDERED: TYLENOL PO PRN (01:21)
--- NOTE | 2018-09-11 01:40 | HISTORY AND PHYSICAL ---
PRIMARY CARE PHYSICIAN: Dr. Francois. CHIEF COMPLAINT: Chest pain. HISTORY OF PRESENTING ILLNESS: This is a 58-year-old female with a history of hypertension, NM, COPD, and hyperlipidemia who had presented to emergency department with 1-day history of having chest pain. She rated the pain as pressure-like with radiation to her jaw and left upper extremity. The patient states that she also had mild shortness of breath. The patient was evaluated in the emergency department and, due to her presenting symptoms, it was thought that she would need admission for further management. At the time of my examination, patient denied any headache, visual changes, fevers, chills, nausea, vomiting, diarrhea, hemoptysis, melena, or any weight changes, but complained of chest pain and mild shortness of breath. PAST MEDICAL HISTORY: Includes depression, hyperlipidemia, NM, hypertension, COPD. PAST SURGICAL HISTORY: Coronary stent, face reconstruction. ALLERGIES: To IV contrast, ketorolac, sulfa. CURRENT MEDICATIONS: Include albuterol inhaler, aspirin 81 mg p.o. q. p.m., Lipitor 40 mg p.o. at bedtime, sertraline dose unknown, Klonopin 1 mg p.o. t.i.d., Lexapro 10 mg p.o. daily, lisinopril- hydrochlorothiazide 20-12.5 one p.o. daily, Zantac 150 mg p.o. b.i.d. SOCIAL HISTORY: A 25+ pack years history of smoking. Admits to social alcohol use. Denies any illicit drug use. FAMILY HISTORY: Positive for coronary disease in mother. REVIEW OF SYSTEMS: Fourteen-point review of systems is as in HPI. Other systems negative. PHYSICAL EXAMINATION: GENERAL: Cooperative, friendly female, she is resting more comfortably now. VITAL SIGNS: Temperature 98 degrees, pulse 100, respirations 18, blood pressure 118/82. HEENT: Atraumatic normocephalic. Extraocular movements intact. PERRLA. NECK: Supple. CHEST: Clear to auscultation. CARDIOVASCULAR: Regular rate and rhythm. ABDOMEN: Soft. Positive bowel sounds. EXTREMITIES: No edema. NEUROLOGIC: She is awake, alert, oriented x3. GENITOURINARY: No bladder distention. SKIN: Warm. LABORATORIES AND STUDIES: WBC 12.75, hemoglobin 14.7, hematocrit 43.4, platelets 222,000. Sodium 141, potassium 4.2, chloride 104, CO2 of 25, BUN is 8, creatinine is 1.0. Glucose is 102. Chest x-ray shows emphysema. ASSESSMENT: A 58-year-old female with a history of hypertension, hyperlipidemia, myocardial infarction, coronary artery disease, and chronic obstructive pulmonary disease, who had presented to emergency department with complaint of chest pain. We will place the patient for observation for further evaluation and management. 1. Chest pain. 2. Coronary artery disease. 3. Hypertension. 4. Chronic obstructive pulmonary disease. PLAN: 1. We will admit patient to medical floor with telemetry. 2. Continue with cardiac workup. Check EKG, serial cardiac enzymes. Have patient continue on aspirin. We will use sublingual nitroglycerin and morphine p.r.n. chest pain. 3. We will consult Cardiology. 4. We will monitor blood pressure. Resume antihypertensive agent. 5. Continue with DuoNebs p.r.n. 6. Put patient on deep venous thrombosis prophylaxis, sequential compression devises. 7. We will continue to follow and reassess. Make further recommendation based on patient's clinical course. cc: MD David Hernandez MD
[2018-09-11] MEDS: MORPHINE IV PRN ×5 (02:07→23:41)
[2018-09-11] MEDS: PRILOSEC PO SCH (06:30)
--- NOTE | 2018-09-11 07:20 | EKG Report ---
Test Performed on : 09/10/2018 7:43:35 PM Test Reason : cp Blood Pressure : / mmHG Vent. Rate : 099 BPM Atrial Rate : 099 BPM P-R Int : 152 ms QRS Dur : 082 ms QT Int : 344 ms P-R-T Axes : 061 068 055 degrees QTc Int : 441 ms Normal sinus rhythm. Normal ECG When compared with ECG of 30-AUG-2017 06:43, Vent. rate has increased BY 35 BPM Unconfirmed Result
[2018-09-11] MEDS: ZANTAC PO SCH ×3 (08:55→20:06)
[2018-09-11] MEDS ORDERED: ASPIRIN PO SCH (09:00)
[2018-09-11] MEDS ORDERED: PRINZIDE 20/12.5MG PO SCH (09:00)
--- NOTE | 2018-09-11 09:42 | PROGRESS NOTE ---
DATE: 09/11/2018 Ms. Figueroa was admitted actually yesterday with severe chest pain. It was retrosternal chest pain. She became very pale. The pain radiated to the jaw and to the left arm. Her EKG showed regular sinus rhythm. It did not show any acute changes. She has been a chronic smoker, has mild hypertension. We will get a cardiology consult. Her troponin as well as proBNP are unremarkable. cc: David Francois MD
[2018-09-11] MEDS ORDERED: SOLU-MEDROL IV ONE (11:51)
[2018-09-11] MEDS ORDERED: BENADRYL IV ONE (11:51)
[2018-09-11] MEDS ORDERED: BENADRYL PO ONE (12:04)
[2018-09-11] MEDS: KLONOPIN PO SCH ×4 (12:12→20:06)
--- NOTE | 2018-09-11 12:39 | CARDIOLOGY CONSULTATION ---
DATE: 09/11/2018 CHIEF COMPLAINT ON PRESENTATION: Chest pain. HISTORY OF PRESENT ILLNESS: Ms. Figueroa is a 58-year-old white female with a history of previous PCI. She presented for complaints of chest discomfort with radiation into the left arm as well as the jaw. This has been going on constantly since around 6-6:30 p.m. last night. It occurred while she was sitting down to eat. There was no exertional component. She reports no provokers or palliators. She reports compliance with medications. PAST MEDICAL HISTORY: 1. Significant for coronary artery disease with last cardiac catheterization performed in 2014. At that time, she had a patent left anterior descending stent as well as no other coronary disease identified in the left main circumflex or right coronary. She had a history of PCI to the left anterior descending in 2011, with a bare metal stent. 2. Hyperlipidemia. 3. Hypertension. 4. COPD. SOCIAL HISTORY: She does not currently smoke. She reports a 25+ pack-year history prior. Occasional alcohol use. FAMILY HISTORY: Significant for coronary disease in her mother. REVIEW OF SYSTEMS: A 10 system review of systems is negative except for those things mentioned in HPI. PHYSICAL: Vital signs: She is afebrile. Heart rate is 66. Blood pressure 105/57. General: She is in no acute distress. HEENT: Oropharynx is moist. Poor dentition. Eye examination is pink conjunctivae. White sclerae. Neck: Examination shows no obvious thyromegaly or thyroid tenderness. Cardiovascular: She sounds to be in a regular rate and rhythm. She has no murmurs. She has no S3. She has no lower extremity edema. Chest: Clear bilaterally. She has no increased work of breathing. Abdomen: Soft, nontender, nondistended. She has no obvious organomegaly. Skin Exam: Warm and dry throughout without any rashes. Neurological: She is moving all extremities well. She has no lateralizing deficits. Psychiatric: Alert and oriented, pleasant. Normal mood and affect. PERTINENT DATA: Chest x-ray demonstrated emphysematous changes. Her EKG reviewed by me shows sinus rhythm, no acute ischemic changes. No signs of injury or previous infarct. Lab data shows a white count of 12.7, hematocrit 43, platelet count 222,000, INR 0.89, sodium 141, potassium 4.2, BUN 8, creatinine is 1. Cardiac enzymes negative times multiple sets. Her LDL was 118 year ago with an HDL of 30. ASSESSMENT: Ms. Figueroa is a 58-year-old female with a many hospitalizations for chest pain. PLAN: At this point, we will refer her for cardiac catheterization. Last nuclear scan in August, showed a low-grade fixed defect in the apex with significant attenuation. She was treated medically from that. She had 81% ejection fraction on that study. Based on the frequency over presentations as well as the length of time since her last cardiac catheterization, we will pursue cardiac catheterization to definitively evaluate her coronary arteries. Further recommendations to follow cardiac catheterization. cc: MD David Kaiser MD
[2018-09-11] MEDS ORDERED: HEPARIN 1000 UNITS/NS 2,000 UNIT/1,000 ML IV.SOLN ONE (12:40)
[2018-09-11] MEDS ORDERED: NITROGLYCERIN ONE (12:45)
[2018-09-11] MEDS ORDERED: VERSED ONE (13:19)
[2018-09-11] MEDS ORDERED: CLAVE TWINSITE 32 IN 11959 ONE (13:20)
[2018-09-11] MEDS ORDERED: NS 2,000 ML ONE (13:20)
[2018-09-11] MEDS ORDERED: DILAUDID ONE (13:20)
[2018-09-11] MEDS ORDERED: ANESTHESIA PB SET 88 IN 5742 ONE (13:20)
[2018-09-11] MEDS ORDERED: ZOFRAN ONE (13:45)
--- NOTE | 2018-09-11 14:50 | CARDIAC CATH REPORT ---
PROCEDURE NAME: - INDICATION FOR PROCEDURE: Patient with a history of PCI to the proximal LAD. Continued bouts of chest pain with repetitive hospitalizations. PROCEDURES PERFORMED: 1. Left heart catheterization. 2. Selective coronary angiography. 3. Left ventriculogram. PROCEDURE IN DETAIL: Ms. Figueroa was brought to the catheterization laboratory in a fasting state. She was prepped in the usual sterile fashion. She was anesthetized over the right radial artery after Manish's test proved adequate. A 5-Azeri sheath was placed via true Seldinger technique. Radial cocktail was administered. Catheters were introduced, and hemodynamic measurements made of the ascending thoracic aorta. Coronary angiography was performed in multiple views using JL-3.5 and JR-4 diagnostic catheters. On left heart catheterization, left ventriculogram was performed using the JR-4. At the conclusion of the procedure, all sheaths and catheters were removed. TR band was inflated at 10 mL of air with good capillary refill. Good hemostasis. CONTRAST: 75 mL of IV contrast. ESTIMATED BLOOD LOSS: 5 to 10 mL of blood loss. COMPLICATIONS: No apparent complications. FINDINGS: 1. The left main appears normal and originates from the left coronary cusp. 2. Left anterior descending originates from the left main. There is a patent proximal LAD stent that does not appear to have any significant in-stent stenosis. The mid and distal LAD appear to be normal. In some views, there is an extremely small high diagonal, which in some views appears to have significant proximal disease, but in others does not. 3. Circumflex originates from the left main. Circumflex appears normal in the proximal vessel, has mild luminal irregularities in the mid vessel, and the distal vessel appears normal. 4. The right coronary artery originates from the right coronary cusp. It is angiographically normal and dominant. 5. Aortic blood pressure 116/60 with a mean of 84. Left ventricle pressure 107/11 with an LVEDP of 16. 6. The left ventriculogram demonstrated a normal ejection fraction of 55%. There did appear to be some possible mild basilar anterior hypokinesis. ASSESSMENT: Ms. Figueroa is a 58-year-old female with a history of percutaneous coronary intervention, who presented with somewhat atypical chest pain with repetitive evaluations for chest pain in the last several years. PLAN: She does not appear to have any flow-limiting disease. I believe the first diagonal is not significant. Regardless, we will try to add in some antianginals to her regimen in case of small vessel disease. I will start with the addition of amlodipine 2.5 mg daily, and change her lisinopril/hydrochlorothiazide to a smaller dose of 10/12.5. cc: MD David Kaiser MD MTDD
[2018-09-11] MEDS: LIPITOR PO SCH ×2 (19:27→20:06)
[2018-09-11] MEDS ORDERED: LIPITOR PO SCH (21:00)
[2018-09-12 06:03] LABS: BASO# 0.01 X1000 (0.0-0.2); BASO% 0.1 % (0.0-0.8); EOS# 0.01 X1000 (0.0-0.7); EOS% 0.1 % (0.0-10.0); HEMATOCRIT 41.9 % (37.0-47.0); HEMOGLOBIN 13.5 g/dL (12.0-16.0); LYMPH# 1.27 X1000 (1.2-3.4); LYMPH% 9.2 % (20.5-51.1); MCH 31.9 PG (27-31); MCHC 32.2 g/dL (33-37); MCV 99.1 FL (81-99); MONO# 0.65 X1000 (0.11-0.59); MONO% 4.7 % (1.7-9.3); MPV 9.7 FL (7.4-10.4); NEUT# 11.82 X1000 (1.4-6.5); NEUT% 85.9 % (42.2-75.2); PLT 183 X1000 (130-400); RBC 4.23 XMIL (4.2-5.4); RDW 12.6 % (11.5-14.5); WBC 13.76 X1000 (4.8-10.8)
[2018-09-12] MEDS: PRILOSEC PO SCH (06:13)
[2018-09-12 06:20] LABS: CHOLESTEROL 97 mg/dL (0-200); HDL 44 mg/dL (45-65); LDL 35 mg/dL; TRIGLYCERIDES 92 mg/dL (35-135); VLDL 18 mg/dL
[2018-09-12] MEDS: KLONOPIN PO SCH ×3 (08:22→21:44)
[2018-09-12] MEDS: ZANTAC PO SCH ×2 (08:22→21:44)
[2018-09-12] MEDS: ASPIRIN PO SCH (08:23)
[2018-09-12] MEDS ORDERED: NORVASC PO SCH (09:00)
[2018-09-12] MEDS ORDERED: PRINZIDE 10/12.5MG PO SCH (09:00)
--- NOTE | 2018-09-12 09:07 | PROGRESS NOTE ---
DATE: 09/12/2018 SUBJECTIVE: Ms Figueroa is not feeling good this morning. She is sick in the stomach. She had an arteriogram done yesterday which was unremarkable. However, she is hypotensive. We are going to hold on her Norvasc. Overall condition is otherwise stable. PLAN: We will continue to watch her. -8 cc: David Francois MD
[2018-09-12] MEDS: MORPHINE IV PRN ×3 (12:32→21:43)
[2018-09-12] MEDS: DUONEB (A & A) INH SCH ×2 (16:10→21:20)
[2018-09-12] MEDS: LIPITOR PO SCH (21:44)
[2018-09-12] MEDS: ZOFRAN IV PRN (21:51)
[2018-09-13] MEDS: MORPHINE IV PRN ×2 (02:12→06:04)
[2018-09-13] MEDS: ZOFRAN IV PRN ×2 (02:18→06:07)
[2018-09-13] MEDS: PRILOSEC PO SCH (06:04)
[2018-09-13] MEDS: ASPIRIN PO SCH (08:25)
[2018-09-13] MEDS: ZANTAC PO SCH (08:25)
[2018-09-13] MEDS: KLONOPIN PO SCH (08:26)
[2018-09-13] MEDS: DUONEB (A & A) INH SCH ×2 (09:30→16:15)
--- NOTE | 2018-09-13 11:50 | PROGRESS NOTE ---
DATE: 09/13/2018 Ms. Figueroa is doing somewhat better. However, her blood pressure is very low. She is hypotensive. The pressure was around 70 systolic. We stopped both lisinopril, HCT as well as amlodipine. She does not have any chest pain. Telemetry does not show any evidence of arrhythmias. Lungs clear. Heart sounds are normal. We will continue to watch her here. cc: David Francois MD
[2018-09-13 12:18] VITALS: BP 115/60
--- NOTE | 2018-09-14 19:24 | DISCHARGE SUMMARY ---
ADMISSION DATE: 09/11/2018 DISCHARGE DATE: 09/13/2018 Ms Figueroa who is a 58-year-old white female was admitted with severe chest pain. She has a history of coronary artery disease, hypertension and mild COPD. LABORATORY DATA: Revealed white count was 12.75, hemoglobin 14.7, hematocrit 43.4. INR was 0.89. Electrolytes were normal. Troponins are negative. Cholesterol was 97, LDL was 35. Urinalysis was negative. She had a chest x-ray which revealed presence of emphysema. She had a cardiac catheterization done by Dr. Altamirano it said that left main artery appeared normal, left anterior descending artery was arising from the left main and in 1 of the branches there was some significant disease however the other branches are normal. Left circumflex artery was normal. Right coronary artery appeared normal. Aortic blood pressure was 116/60, ejection fraction was 55%. IMPRESSION: Was that she had a typical chest pain but she has some coronary artery disease not significant for intervention. She will be continued on the medical treatment and her blood pressure dropped, she was on lisinopril hydrochlorothiazide and Norvasc, blood pressure dropped. We had to stop it and we did repeat it. She wanted to go home on the same day when her blood pressure went down. As she was feeling better we decided to send her home on request. FINAL DIAGNOSIS: 1. Hypertension. 2. Chronic obstructive pulmonary disease. 3. Mild coronary artery disease. 4. Chest pain. No new medications were given. She has severe headache from the nitrates. cc: David Francois MD
== END 2018-09-13 16:15 | disposition home or self-care (01) ==
LOC: ED 19:36 → 3N 19:36 → SUATTDRO 09-11 00:52 → 3S 09-11 14:23
PROVIDERS: ADMIT Internal Medicine; ATTEND Internal Medicine
CPT/HCPCS: 71010; 71045; 80053; 80061; 81001; 82550; 83880; 84484; 85025; 85610; 85730; 93005; 93458; 94640; 94761; 96374; 96375; 99285; A9270; J1170; J1644; J2250; J2270; J2405; J2920; J7030; Q9967

== ENCOUNTER 2018-11-12 17:27 | Observation (INO) ==
--- NOTE | 2018-11-12 18:11 | Diag Imaging Result Doc PS360 ---
EXAM: CHEST-2 VIEWS HISTORY: cp TECHNIQUE: Chest two views COMPARISON: 09/10/2018 FINDINGS: The lungs are well expanded. The heart is not enlarged. The vessels are not distended. There are no infiltrates. No pleural effusions. There has been surgery to the lower neck. IMPRESSION: No acute abnormality. Electronically signed by Silvino Garces 11/12/2018 6:09 PM
[2018-11-12 18:49] LABS: BASO# 0.02 X1000 (0.0-0.2); BASO% 0.2 % (0.0-0.8); EOS# 0.15 X1000 (0.0-0.7); EOS% 1.7 % (0.0-10.0); HEMATOCRIT 49.7 % (37.0-47.0); HEMOGLOBIN 16.9 g/dL (12.0-16.0); LYMPH# 2.42 X1000 (1.2-3.4); LYMPH% 27.3 % (20.5-51.1); MCH 31.5 PG (27-31); MCV 92.7 FL (81-99); MONO% 5.6 % (1.7-9.3); MPV 9.4 FL (7.4-10.4); NEUT# 5.77 X1000 (1.4-6.5); NEUT% 65.2 % (42.2-75.2); PLT 238 X1000 (130-400); RBC 5.36 XMIL (4.2-5.4); RDW 12.6 % (11.5-14.5); WBC 8.86 X1000 (4.8-10.8)
[2018-11-12 18:59] LABS: PROTIME 11.7 Seconds (11.0-16.0)
[2018-11-12 19:00] LABS: PTT 29.7 Seconds (22.3-41.8)
[2018-11-12 19:06] LABS: CHLORIDE 97 mmol/L (98-107); INR 0.8; POTASSIUM 4.8 mmol/L (3.5-5.1); SODIUM 132 mmol/L (136-145)
[2018-11-12 19:07] LABS: AGAP 9; ALB/GLOB RATIO 1.5; ALBUMIN 4.6 g/dL (3.5-5.0); ALKALINE PHOSPHATASE 99 U/L (32-104); BUN 11 mg/dL (8-22); CALCIUM 9.4 mg/dL (8.8-10.2); CK PROFILE 75 U/L (24-173); COSMO 264; CREATININE 0.8 mg/dL (0.5-0.9); ESTIMATED GFR > 60; GLUCOSE 98 mg/dL (70-104); GOT 44 U/L (10-30); GPT 43 U/L (10-36); TCO2 26 mmol/L (25-35); TOTAL BILIRUBIN 0.56 mg/dL (0.20-1.00); TOTAL PROTEIN 7.6 g/dL (6.3-8.3)
[2018-11-12] MEDS ORDERED: MORPHINE IV ONE ×2 (19:07→20:31)
[2018-11-12] MEDS ORDERED: NS 1,000 ML IV ONE (19:38)
[2018-11-12] MEDS ORDERED: DILAUDID IV ONE (22:19)
[2018-11-12] MEDS ORDERED: SOLU-CORTEF IV ONE (22:27)
[2018-11-12] MEDS ORDERED: BENADRYL IV ONE (22:27)
--- NOTE | 2018-11-12 22:52 | PROVIDER DOCUMENTATION ---
This chart was entered by Maribell See Scribe, acting as scribe for William Lobato MD. HPI-General Adult - General Chief Complaint: General Adult Stated Complaint: BODY PAIN Time Seen by Provider: 11/12/18 18:22 Source: patient Allergies/Adverse Reactions: Patient Allergies Allergy/AdvReac Type Severity Reaction Status Date / Time ketorolac tromethamine * Allergy Intermediate DIZZINESS Verified 11/12/18 18:26 [From Toradol] Sulfa (Sulfonamide Allergy Intermediate RASH Verified 11/12/18 18:26 Antibiotics) Iodinated Contrast- Oral and Allergy Unknown ANAPHYLAXIS Verified 11/12/18 18:26 IV Dye Home Medications: Home Medication List Medication Instructions Recorded Confirmed Last Taken Type Aspirin 81 mg PO QPM 05/01/12 09/10/18 09/09/18 History ATORVAstatin [Lipitor] 40 mg PO QHS tablet 08/30/17 09/10/18 09/09/18 Rx Clonazepam [Klonopin] 1 mg PO TID tablet 08/30/17 09/10/18 09/09/18 Rx Hydrocodone/APAP 7.5 mg/325 mg 1 each PO TID PRN PRN 30 Days #90 08/30/17 09/10/18 09/08/18 Rx [[place]-7.5] tablet Ranitidine [Zantac] 150 mg PO BID tablet 08/30/17 09/10/18 09/09/18 Rx Albuterol Sulfate Inhaler 2 puff INH PRN PRN 09/10/18 09/11/18 09/10/18 History [Ventolin Hfa] Cetirizine HCl 10 mg PO DAILY 09/10/18 09/11/18 09/09/18 History Escitalopram Oxalate [Lexapro] 10 mg PO DAILY 09/10/18 09/11/18 09/09/18 History Fluticasone 50 Mcg Nasal [place] 1 spray LINUS PRN PRN 09/10/18 09/11/18 09/09/18 History [Flonase] Methocarbamol 750 mg PO TID 09/10/18 09/11/18 Unknown History Tizanidine HCl 4 mg PO BID 09/10/18 09/11/18 09/09/18 History - History of Present Illness -Gen Adult Nature of Presenting Problems: pt is a 58 yr old female presenting with multiple complaints. pt initially complains of 2 day chest pain radiating to back, neck and jaw intermittent 10/21. pt then reports 2 week hx of severe abdominal pain, twisting, stabbing, tearing pain worsening since onset. pt denies nausea, vomiting, diarrhea or shortness of breath. pt aslo reports 1 episode of syncope this afternoon, pt was getting up from bed, woke up in the floor sometime later, pt was incontinent. unknown how long she was out Location of Pain/Injury: reports: chest, abdomen Pain Radiation: reports: back (between shoulder blades), jaw (bilateral), neck (bilateral) Quality of Pain: reports: sharp (chest), other (abd-twisting, stabbing, tearing pain) Severity: reports: moderate (10/21) Onset/Duration: reports: other (2 days chest, 2 weeks abd) Timing: reports: intermittent, getting worse Context/Activities at Onset: reports: light activity Modifying Factors: improves with: nothing Associated Symptoms: reports: back/neck pain, chest pain, malaise, syncope. denies: constipation, cough, diarrhea, fever/chills, nausea, shortness of breath, vomiting, weakness Similar Symptoms Previously?: No Recently seen or treated by another doctor?: No Review of Systems - Adult - REVIEW OF SYSTEMS - ADULT Constitutional: reports: fatique. denies: chills, fever Eyes: denies: blurred vision, double vision Ears, Nose, Mouth & Throat: denies: ear pain, sinus problem, throat pain Cardiovascular: reports: chest pain, syncope. denies: palpitations Respiratory: denies: cough, shortness of breath Gastrointestinal: reports: abdominal pain, poor appetite. denies: diarrhea, nausea, vomiting Genitourinary: denies: dysuria, frequency, flank pain Musculoskeletal: reports: back pain, joint pain (jaw), neck pain Integumentary: reports: no symptoms reported Neurological: reports: syncope. denies: dizziness/vertigo, headache/migraines Psychiatric: reports: no symptoms reported Endocrine: reports: no symptoms reported Hematologic/Lymphatic: reports: no symptoms reported Allergic/Immunologic: reports: no symptoms reported All Other Systems: Reviewed and Negative Past History - Adult - PAST MEDICAL HISTORY-ADULT Review of Records: reports: Old Records Reviewed, Nursing Assessment Review, Medications Reviewed, Social history reviewed & non-contributory. Major Childhood Illnesses: reports: denies history Cardiovascular: reports: cardiac disease, CAD, HTN, hyperlipidemia, [place] Respiratory: reports: denies history Gastrointestinal: reports: GERD Obstetrical/Gynecological: reports: denies history Genitourinary: reports: denies history Musculoskeletal: reports: denies history Neurological: reports: denies history Endocrine/Immune: reports: denies history Other Conditions: reports: denies history - PRIOR SURGERIES/PROCEDURES Surgical/Procedure History: reports: appendectomy, cholecystectomy, cardiac stent, hysterectomy, , orthopedic (extremity), other - PRIOR HOSPITALIZATIONS Prior Hospitalizations: reports: for similar symptoms - IMMUNIZATION STATUS Childhood Immunizations: See Nurse Assessment Flu Vaccine: See Nurse Assessment - FAMILY HISTORY Family History: reviewed, not pertinent - SOCIAL HISTORY Smoking: cigarettes Provider spent 3-5 mins advising pt. on dangers of tobacco.: Discussed manners to quit use, and f/u contacts for add'l counseling. Living Situation: alone Physical Exam-General - PHYSICAL EXAM-ADULT Initial Vital Signs Reviewed: Yes - CONSTITUTIONAL General Appearance: appears well, alert, no apparent distress - EYES Eyes: PERRL/EOMI - HEAD, EARS, NOSE, MOUTH & THROAT HENMT: normocephalic/atraumatic, moist mucous membranes, normal ENT inspection - NECK Neck: non-tender, full range of motion, supple, normal inspection - RESPIRATORY Respiratory: chest non-tender, lungs clear, normal breath sounds, no respiratory distress, no accessory muscle use - CARDIOVASCULAR Cardiovascular: normal peripheral pulses, regular rate, rhythm, no edema - GASTROINTESTINAL (ABDOMEN) Abdominal Exam: normal bowel sounds, soft, no organomegaly, no pulsatile mass, tenderness (RUQ), Hines's sign. negative: abdominal bruit - LYMPHATIC Lymphatic: no adenopathy - MUSCULOSKELETAL Back Exam: normal inspection, no CVA tenderness, no vertebral tenderness Extremity: normal range of motion, non-tender, normal gait, normal inspection, no pedal edema, no calf tenderness, normal capillary refill - SKIN Integumentary: normal color, normal turgor, warm/dry - NEUROLOGIC Neurologic: grossly normal - PSYCHIATRIC Psych/Mental Status: normal mood/affect Progress - PLAN OF CARE/RESULTS Progress/Plan/Lab Results: Vital Signs - 8 hr 11/12/18 17:37 11/12/18 18:26 11/12/18 18:40 Temperature 97.7 F Pulse Rate 88 82 76 Respiratory Rate 18 16 25 H Blood Pressure 86/55 107/68 O2 Sat by Pulse Oximetry 94 L 95 95 Laboratory Results - last 24 hr 11/12/18 11/12/18 11/12/18 18:38 18:38 18:38 WBC 8.86 RBC 5.36 Hgb 16.9 H Hct 49.7 H MCV 92.7 MCH 31.5 H MCHC 34.0 RDW Std Deviation 12.6 Plt Count 238 MPV 9.4 Immature Gran % (Auto) 0.0 Neut % (Auto) 65.2 Lymph % (Auto) 27.3 [place] % (Auto) 5.6 Eos % (Auto) 1.7 Baso % (Auto) 0.2 Immature Gran # (Auto) 0.00 Neut # (Auto) 5.77 Lymph # (Auto) 2.42 [place]ove # (Auto) 0.50 Eos # (Auto) 0.15 Baso # (Auto) 0.02 PT INR PTT (Actin FS) Sodium 132 L Potassium 4.8 Chloride 97 L Carbon Dioxide 26 Anion Gap 9 BUN 11 Creatinine 0.8 Estimated GFR/1.73 m2 > 60 BUN/Creatinine Ratio 14 Glucose 98 Calculated Osmolality 264 Calcium 9.4 Total Bilirubin 0.56 AST 44 H ALT 43 H Alkaline Phosphatase 99 Creatine Kinase 75 Troponin T Jrx-O-Liovwgfeswt Pept 90 Total Protein 7.6 Albumin 4.6 Globulin 3.0 Albumin/Globulin Ratio 1.5 Lipase 11/12/18 11/12/18 11/12/18 18:38 18:38 18:38 WBC RBC Hgb Hct MCV MCH MCHC RDW Std Deviation Plt Count MPV Immature Gran % (Auto) Neut % (Auto) Lymph % (Auto) [place] % (Auto) Eos % (Auto) Baso % (Auto) Immature Gran # (Auto) Neut # (Auto) Lymph # (Auto) [place] # (Auto) Eos # (Auto) Baso # (Auto) PT 11.7 INR 0.80 PTT (Actin FS) 29.7 Sodium Potassium Chloride Carbon Dioxide Anion Gap BUN Creatinine Estimated GFR/1.73 m2 BUN/Creatinine Ratio Glucose Calculated Osmolality Calcium Total Bilirubin AST ALT Alkaline Phosphatase Creatine Kinase Troponin T < 0.010 [id number]-[id number] Pept Total Protein Albumin Globulin Albumin/Globulin Ratio Lipase 113 H Orders Category Date Time Status Cardiac Monitoring DIRECTED Care 11/12/18 17:42 Active Oxygen Therapy- ED Nursing DIRECTED Care 11/12/18 17:42 Active Saline Loc NOW Care 11/12/18 17:42 Active NPO Diet 11/12/18 19:38 Active CHEST-2 VIEWS [RAD] Stat Exams 11/12/18 17:42 Completed CBC WITH ELECTRONIC DIFF [HEME] Stat Lab 11/12/18 18:38 Completed CK PROFILE [SP CHEM] Stat Lab 11/12/18 18:38 Completed COMPREHENSIVE METABOLIC PANEL [CHEM] Stat Lab 11/12/18 18:38 Completed LIPASE [CHEM] Stat Lab 11/12/18 18:38 Completed PRO B-NATRIURETIC PEPTIDE Stat Lab 11/12/18 18:38 Completed PROTIME WITH INR [COAG] Stat Lab 11/12/18 18:38 Completed PTT [COAG] Stat Lab 11/12/18 18:38 Completed TROPONIN T Stat Lab 11/12/18 18:38 Completed 0.9% Sodium Chloride Inj [Ns] 1,000 ml Med 11/12/18 19:38 Active IV 999 mls/hr Morphine Med 11/12/18 19:07 Discontinued 4 mg IV NOW ONE CP/SOB/Palp >45 yrs of Age Stat Oth 11/12/18 17:42 Ordered EKG [EKG] Stat Ther 11/12/18 17:42 Ordered A/P: pt had syncopal episode. Elevated Lipase, 113, not significant to match patient out of proportion pain. Pt is on chronic opiates and benzos. stated she got worse after morphine. allergic to nsaids. CT abdomen was wnl. no acute pancreatitis. vitals stable, will admit for observation. Result Diagrams: 11/12/18 18:38 11/12/18 18:38 - EKG 1 Time of EKG reading by physician:: 17:40 EKG Read and Signed by:: Ilir Alvarenga EKG Interpretation (*Must complete 3 of following elements*): Abnormal (possible LAE) Rate: 89 Rhythm: nsr [place]: normal QRS: normal MA Interval: normal ST Wave: normal - XRAY 1 XRAY Study: Chest Impression: Normal ( EXAM: CHEST-2 VIEWS HISTORY: cp TECHNIQUE: Chest two views COMPARISON: 09/10/2018 FINDINGS: The lungs are well expanded. The heart is not enlarged. The vessels are not distended. There are no infiltrates. No pleural effusions. There has been surgery to the lower neck. IMPRESSION: No acute abnormality. Electronically signed by Silvino Garces 11/12/2018 6:09 PM 11/12/181808 Interpreting Physician: Silvino Garces MD Dictated Date/Time: 11/12/181807 cc: Ilir Alvarenga MD; David Francois MD) Comparison with other Films: no changes (09/10/18) - CONSULTS/PCP/HOSPITALIST Notification #1 *Consult/PCP/Hospitalist*: Dr martinez Time Discussed: 22:30 Consult Disposition: Admit Departure - Departure Date of Disposition Decision: 11/12/18 Time of Disposition Decision: 22:52 DIAGNOSIS: Elevated lipase Disposition: ADMITTED INPATIENT 09 Certified Medical Emergency: Emergent Condition: Stable Additional Freetext Instructions: We have examined and treated you today on an emergency basis only. This was not a substitute for, or an effort to provide, complete medical care. In most cases, you must let your doctor check you again. Tell your doctor about any new or lasting problems. We cannot recognize and treat all injuries or illnesses in one Emergency Department visit. If you had special tests, such as X-rays or CT scans, will be reviewed by radiologist and will call you if there are any new suggestions Follow up with primary care provider in 1 to 2 days if no improvement. If you do not have a primary care provider, you need to choose one as soon as possible. Take medicines as prescribed. Monitor for any side effects or adverse events from medications. If any side effect, adverse event or rash develops, or if you suspect any other adverse reaction to the medication, then discontinue the medication immediately and contact clinic /PCP or go to the nearest ER. Narcotic meds / sedative meds instruction - patent advised not to drive, operate any machinery or go into water after taking meds as it may impair mental ability to react to the situation in an appropriate manner . Continue other current medicines. Follow up with PCP within 24-48 hours, or sooner if symptoms worsen or fail to improve. Patient / guardian verbalizes understanding of treatment plan, medication, and side effects and agrees with treatment plan. Patient leaves ER in stable condition and ambulatory state. Return to ER as needed. Discharge instructions reviewed verbally and given to patient in written form. Follow up with primary care provider. Referrals and Follow-Ups: David Francois MD [Primary Care Provider] - - Critical Care Note This patient required my direct & personal management of CC.: No Attestation - Physician/ NIKA Attestation Patient care was provided by Advanced Practice Provider:: No The physician spent face to face time with patient:: Yes Advanced Practice Provider documentation review:: Supervising physician onsite and consulted in the evaluation and care of this patient. The physician did have a face to face encounter with the patient. This chart was documented by the indicated scribe, (Maribell See Scribe) and accurately reflects the services I performed and decisions made by me, William Lobato MD, as attested by the provider's signature.
--- NOTE | 2018-11-12 23:42 | HISTORY AND PHYSICAL ---
PRIMARY CARE PHYSICIAN: Dr. Francois. CHIEF COMPLAINT: Passed out and abdominal pain. HISTORY OF PRESENTING ILLNESS: A 58-year-old female with a history of depression, AR, hypertension, COPD, who presented to emergency department due to patient having an episode where she passed out. She does not really remember what happened. She states that then she started having some abdominal pain. The patient was evaluated in the emergency department. She had multiple vague symptoms. However she was still complaining of having abdominal discomfort. She had laboratories drawn that did show a mildly elevated lipase also. Due to these presenting symptoms, it was thought that we will place her for observation for further evaluation management. Time my examination, patient denied any headache, vision changes, fevers, chills, hemoptysis, melena, or any weight changes but complained of passing out and having abdominal pain. PAST MEDICAL HISTORY: Includes depression, AR, coronary artery disease, hypertension, COPD. PAST SURGICAL HISTORY: Coronary stent, face reconstruction. ALLERGIES: IV contrast, ketorolac and sulfa. CURRENT MEDICATIONS: Albuterol inhaler 2 puffs inhalation q.i.d., aspirin 81 mg p.o. nightly, Lipitor 40 mg p.o. at bedtime, Klonopin 1 mg p.o. t.i.d., Lexapro 10 mg p.o. daily, [place] 7.5 mg p.o. t.i.d., lisinopril HCT 20/12.5 one p.o. b.i.d., Robaxin 750 mg p.o. t.i.d., ranitidine 150 mg p.o. b.i.d., tizanidine 4 mg p.o. b.i.d. SOCIAL HISTORY: 25+ pack years history of smoking. Admits to social alcohol use. Denies any illicit drug use. FAMILY HISTORY: No history of coronary disease. REVIEW OF SYSTEMS: Fourteen point review of systems is as in HPI. Other systems negative. PHYSICAL EXAMINATION: GENERAL: Cooperative, friendly female. She is resting comfortably now. VITAL SIGNS: Temperature 97.7 degrees, pulse 88, respiration 18, blood pressure 86/55 and repeat is 107/68. HEENT: Atraumatic, normocephalic. Extraocular movements intact. PERRLA. NECK: No masses. CHEST: Clear to auscultation. CARDIOVASCULAR: Regular rate and rhythm. ABDOMEN: Soft. Positive bowel sounds. EXTREMITIES: No edema. NEUROLOGIC: She is awake, alert, oriented x3. : No bladder distention. SKIN: Warm. LABORATORIES AND STUDIES: WBC 8.86, hemoglobin 16.9, hematocrit 49.7, platelets 238,000. Sodium 132, potassium 4.8, chloride 97, CO2 26, BUN is 11, creatinine 0.8, glucose is 98, lipase is 113. Chest x-ray is negative. CT of the abdomen is pending. ASSESSMENT: A 58-year-old female with a history of depression, myocardial infarction, coronary disease, hypertension, chronic obstructive pulmonary disease, who had presented to emergency department with 1-day history of passing out and having abdominal pain. She was evaluated in the emergency department. She had mildly elevated lipase and due to her presenting symptoms, we will place the patient for observation for further evaluation and management. 1. Syncopal episode. 2. Abdominal pain. 3. Elevated lipase. Will need to rule out possible pancreatitis. 4. Chronic obstructive pulmonary disease. 5. Hypertension. PLAN: 1. We will admit patient to medical floor with telemetry. 2. Check orthostatic blood pressure and pulse. 3. We will continue with gentle hydration. 4. We will give patient adequate pain control. 5. We are awaiting CT of the abdomen and pelvis scan. 6. Continue with DuoNeb p.r.n. 7. We will monitor blood pressure closely. 8. We will put patient on DVT prophylaxis SCD. 9. We will continue to follow and reassess. Make further recommendation based on patient's clinical course. cc: Carlton Holm MD
[2018-11-13] MEDS: NS 1,000 ML IV SCH ×3 (00:20→22:48)
[2018-11-13] MEDS: DILAUDID IV PRN ×6 (02:21→21:06)
[2018-11-13] MEDS: ZOFRAN IV PRN ×4 (05:55→17:03)
--- NOTE | 2018-11-13 06:18 | Diag Imaging Result Doc PS360 ---
CT ABD/PELVIS W/IV CONT ONLY - 11/12/2018 INDICATION: abdominal pain COMPARISON: None FINDINGS: There is COPD in the lung bases. No infiltrates. There are cholecystectomy clips. The liver, pancreas, spleen, adrenals, and kidneys are normal. No definite bowel obstruction or inflammation. There are a few scattered diverticula of the sigmoid colon. Uterus is absent. Urinary bladder and rectum are normal. Bones are intact and well mineralized. IMPRESSION: COPD. Diverticulosis coli. No definite acute process. This exam was performed using automated exposure control, adjustment of mA or kV according to patient size, and/or use of iterative reconstruction technique Electronically signed by Cortes Gabriel 11/13/2018 6:16 AM
--- NOTE | 2018-11-13 06:52 | EKG Report ---
Test Performed on : 11/12/2018 5:40:56 PM Test Reason : cp Blood Pressure : / mmHG Vent. Rate : 089 BPM Atrial Rate : 089 BPM P-R Int : 158 ms QRS Dur : 080 ms QT Int : 356 ms P-R-T Axes : 072 055 055 degrees QTc Int : 433 ms Normal sinus rhythm. Possible Left atrial enlargement Borderline ECG When compared with ECG of 10-SEP-2018 19:43, No significant change was found Unconfirmed Result
[2018-11-13 08:14] LABS: EOS# 0.01 X1000 (0.0-0.7); EOS% 0.1 % (0.0-10.0); HEMATOCRIT 41.5 % (37.0-47.0); HEMOGLOBIN 13.8 g/dL (12.0-16.0); LYMPH# 1.24 X1000 (1.2-3.4); LYMPH% 17.6 % (20.5-51.1); MCH 31.2 PG (27-31); MCHC 33.3 g/dL (33-37); MCV 93.9 FL (81-99); MONO# 0.16 X1000 (0.11-0.59); MONO% 2.3 % (1.7-9.3); MPV 9.8 FL (7.4-10.4); NEUT# 5.62 X1000 (1.4-6.5); PLT 185 X1000 (130-400); RBC 4.42 XMIL (4.2-5.4); RDW 12.6 % (11.5-14.5); WBC 7.03 X1000 (4.8-10.8)
[2018-11-13] MEDS: DUONEB (A & A) INH PRN (08:24)
[2018-11-13 08:58] LABS: AGAP 9; BUN 11 mg/dL (8-22); CHLORIDE 105 mmol/L (98-107); COSMO 278; CREATININE 0.7 mg/dL (0.5-0.9); ESTIMATED GFR > 60; GLUCOSE 116 mg/dL (70-104); POTASSIUM 4.5 mmol/L (3.5-5.1); SODIUM 139 mmol/L (136-145); TCO2 25 mmol/L (25-35)
--- NOTE | 2018-11-13 09:23 | PROGRESS NOTE ---
DATE: 11/13/2018 LOCATION: Room 448. SUBJECTIVE: She was admitted yesterday from emergency room, and seen by the hospitalist initially. She was admitted with a syncopal episode, some abdominal and chest pain, and CT scan found diverticulosis and emphysema. She is still having abdominal pain. We have a GI consult for possible EGD and colonoscopy. Overall condition is otherwise stable. cc: David Francois MD
[2018-11-13 10:35] LABS: URINE SOURCE CLEAN CATCH
[2018-11-13 10:39] LABS: BILIRUBIN URINE NEGATIVE (NEGATIVE); BLOOD URINE NEGATIVE (NEGATIVE); COLOR YELLOW; GLUCOSE URINE NEGATIVE (NEGATIVE); KETONE URINE NEGATIVE (NEGATIVE); LEUKOCYTES URINE NEGATIVE (NEGATIVE); NITRITE URINE NEGATIVE (NEGATIVE); PH URINE 5.5; PROTEIN URINE NEGATIVE (NEGATIVE); SP GRAVITY URINE 1.041; TURBIDITY URINE CLEAR (CLEAR); UR EPITHELIAL CELLS <10 /HPF (<10); URINE BACTERIA NEGATIVE /HPF; URINE RBC <10 /HPF (<10); URINE WBC <10 /HPF (<10); UROBILINOGEN URINE NORMAL (NORMAL)
[2018-11-13] MEDS: SODIUM CHLORIDE 0.9% INJ SCH (13:11)
[2018-11-13] MEDS: NEXIUM IV SCH (13:11)
[2018-11-13 16:15] LABS: ALB/GLOB RATIO 1.3; ALBUMIN 3.6 g/dL (3.5-5.0); DIRECT BILIRUBIN 0.1 mg/dL (0.00-0.20); TOTAL BILIRUBIN 0.41 mg/dL (0.20-1.00); TOTAL PROTEIN 6.3 g/dL (6.3-8.3)
[2018-11-13] MEDS: CARAFATE LIQUID PO SCH ×2 (16:34→20:01)
--- NOTE | 2018-11-13 16:36 | GASTROENTEROLOGY CONSULTATION ---
DATE: 11/13/2018 REASON FOR CONSULTATION: Abdominal pain, syncopal episode. HISTORY OF PRESENT ILLNESS: This is a 58-year-old female who reports onset of symptoms for approximately a month. She has noted progressive abdominal pain. Over the last several days, her abdominal pain became severe enough that she had to come into the emergency room. She has reported some nausea, but denies vomiting. She has reported occasional dysphagia and occasional chest pain. She has denied visible bright red blood in the stool, but noticed some dark stool on 2 different occasions, once several weeks ago, and then the 2nd time over the weekend. She has reported a cough and some drainage. She was treated with antibiotics recently for sinus infection with amoxicillin. She reports abdominal pain that also radiates to her back. She denies NSAID use but states she was started on recent medication for arthritis. She states she has never had a colonoscopy. She may have had an upper endoscopy over 30 years ago. She states she was told she had a hiatal hernia. PAST MEDICAL HISTORY: 1. Depression. 2. History of myocardial infarction. 3. Coronary artery disease. 4. Hypertension. 5. COPD. PAST SURGICAL HISTORY: Face reconstruction, coronary stents, appendectomy, cholecystectomy, neck surgery in December 2017. ALLERGIES: Toradol causing dizziness, sulfonamide antibiotics causing a rash, and oral IV dye causing anaphylaxis. MEDICATIONS: Ventolin inhaler as needed. Aspirin 81 mg daily. Lipitor 40 mg daily. Sertraline 10 mg daily. Klonopin 1 mg 3 times a day. Lexapro 10 mg daily. Flonase as needed. [place] 7.5, 3 times a day as needed. Prinzide 20/12.5 mg twice a day. Methocarbamol 750 mg 3 times a day. Zofran 4 mg 3 times a day. Zantac 150 mg twice a day. Tizanidine 4 mg twice a day. SOCIAL HISTORY: Tobacco use: 1/2 pack of cigarettes daily. Reports occasional alcohol use. She is . She has 4 children. REVIEW OF SYSTEMS: Per History of Present Illness. PHYSICAL EXAMINATION: Vital Signs: Temperature 98.6 degrees, pulse 70, respirations 18, blood pressure 100/62. General: Patient is awake and alert in no acute distress. HEENT: Normocephalic, atraumatic. Pupils equal, round, and reactive to light. Sclerae are nonicteric. Cardiovascular: Regular rate and rhythm. Respiratory: Lung sounds clear bilaterally. Abdomen: Soft. Tenderness noted with palpation. Positive bowel sounds. Extremities: No lower extremity edema noted. Neurological: Cranial nerves 2-12 grossly intact. Patient is awake and alert, oriented to person, place, and time. DIAGNOSTIC RESULTS: Laboratory: Hematology: WBC 7.03, hemoglobin 13.8, hematocrit 41.5, MCV 93.9, platelet 185,000. Coagulation: PT 11.7, INR 0.80, PTT 29.7. Chemistry: Sodium 139, potassium 4.5, chloride 105, CO2 of 25, BUN 11, creatinine 0.7, glucose 116, total bilirubin 0.56, AST 44, ALT 43, alkaline phosphatase 99. Lipase 113 on 11/12/2018 and 95 today. Urinalysis was normal. Imaging: Abdominal and pelvis CT scan findings showing COPD, diverticulosis. Otherwise no acute process. ASSESSMENT AND PLAN: 1. Abdominal pain. 2. Syncopal episode. 3. Mildly elevated lipase. 4. Chronic obstructive pulmonary disease. 5. Hypertension. 6. Recent melena with normal hemoglobin and hematocrit. PLAN: Continue symptomatic treatment and supportive care. Monitor hemoglobin and hematocrit. We will most likely proceed with an EGD on Sunday if patient continues to have symptoms and is still in the hospital. Further plans will be made according to her progress. I have discussed this case with Dr. Bunch. Thank you for this consultation. Dictated by BIANCA Powell for Lizandro Bunch MD cc: BIANCA Pickens MD Amit V. Vora, MD
[2018-11-13] MEDS ORDERED: FLONASE NAS PRN (18:28)
[2018-11-13] MEDS ORDERED: VENTOLIN HFA INH PRN (18:28)
[2018-11-13] MEDS: ZANAFLEX PO SCH (20:02)
[2018-11-13] MEDS: LIPITOR PO SCH (20:02)
[2018-11-13] MEDS: KLONOPIN PO SCH (20:02)
[2018-11-13] MEDS: PRINZIDE 20/12.5MG PO SCH (20:02)
[2018-11-13] MEDS: ASPIRIN PO SCH (20:02)
[2018-11-14] MEDS: NORCO-7.5 PO PRN ×4 (01:43→18:49)
[2018-11-14] MEDS: CARAFATE LIQUID PO SCH ×4 (01:44→20:46)
[2018-11-14] MEDS: ZOFRAN IV PRN ×5 (01:49→22:26)
[2018-11-14] MEDS: DILAUDID IV PRN ×5 (02:28→22:22)
[2018-11-14] MEDS: ZYRTEC PO SCH (08:26)
[2018-11-14] MEDS: ROBAXIN PO SCH ×3 (08:26→17:00)
[2018-11-14] MEDS: ZANAFLEX PO SCH ×2 (08:26→20:46)
[2018-11-14] MEDS: SODIUM CHLORIDE 0.9% INJ SCH (08:27)
[2018-11-14] MEDS: KLONOPIN PO SCH ×2 (08:27→20:46)
[2018-11-14] MEDS: LEXAPRO PO SCH (08:27)
[2018-11-14] MEDS: NEXIUM IV SCH ×2 (08:28→13:02)
[2018-11-14] MEDS: PRINZIDE 20/12.5MG PO SCH ×2 (08:35→20:46)
--- NOTE | 2018-11-14 10:58 | PROGRESS NOTE ---
DATE: 11/14/2018 SUBJECTIVE: Ms. Figueroa is still having epigastric pain. She was seen by Dr. Bunch, who wants to do EGD tomorrow. Her liver enzymes are elevated. We are going to put her on soft diet today. She is to get the EGD tomorrow. cc: David Francois MD
[2018-11-14] MEDS: DUONEB (A & A) INH PRN (14:22)
[2018-11-14] MEDS: LIPITOR PO SCH (20:46)
[2018-11-14] MEDS: ASPIRIN PO SCH (20:46)
[2018-11-14] MEDS ORDERED: BENADRYL PO ONE (23:41)
[2018-11-15] MEDS: CARAFATE LIQUID PO SCH ×4 (02:26→21:28)
[2018-11-15] MEDS: ZOFRAN IV PRN ×4 (06:17→21:33)
[2018-11-15] MEDS: DILAUDID IV PRN ×4 (06:17→21:32)
[2018-11-15 07:36] LABS: AGAP 9; ALB/GLOB RATIO 1.2; ALBUMIN 3.1 g/dL (3.5-5.0); ALKALINE PHOSPHATASE 98 U/L (32-104); BUN 10 mg/dL (8-22); CALCIUM 7.9 mg/dL (8.8-10.2); CHLORIDE 105 mmol/L (98-107); COSMO 276; CREATININE 0.9 mg/dL (0.5-0.9); ESTIMATED GFR > 60; GLUCOSE 95 mg/dL (70-104); GOT 39 U/L (10-30); GPT 54 U/L (10-36); POTASSIUM 4.2 mmol/L (3.5-5.1); SODIUM 139 mmol/L (136-145); TCO2 25 mmol/L (25-35); TOTAL BILIRUBIN 0.26 mg/dL (0.20-1.00); TOTAL PROTEIN 5.7 g/dL (6.3-8.3)
[2018-11-15] MEDS ORDERED: DIPRIVAN 1% ONE (07:55)
[2018-11-15] MEDS ORDERED: XYLOCAINE-MPF 2% ONE (08:00)
[2018-11-15] MEDS ORDERED: FENTANYL ONE (08:02)
[2018-11-15] MEDS ORDERED: PNEUMOVAX 23 IM ONE (09:00)
[2018-11-15] MEDS: SODIUM CHLORIDE 0.9% INJ SCH (09:54)
--- NOTE | 2018-11-15 09:55 | OPERATIVE NOTE ---
PROCEDURE DATE: 11/15/2018 PROCEDURE: EGD and biopsy. PREOPERATIVE DIAGNOSES: 1. Abdominal pain. 2. History of syncopal episode. POSTOPERATIVE DIAGNOSES: 1. Severe gastritis. 2. Mild esophagitis. 3. Mild duodenitis. HISTORY: This is 58-year-old white female admitted to hospital the hospital with history of episodes of abdominal pain. Apparently, she has had syncopal episodes. She has slightly elevated LFT's. Otherwise hemoglobin and hematocrit fairly stable. No signs of active bleeding. EGD was done for diagnostic purposes. DESCRIPTION OF PROCEDURE: Informed Consent was obtained from the patient. The procedure, risks, benefits, and alternatives were explained in layman's terms. She understood. All of her pertinent questions were answered. Patient was brought to the endoscopy unit and was premedicated as per Anesthesia. After adequate sedation, while she was lying in left lateral position. The gastroscope was introduced into the posterior pharynx and advanced under direct vision into the esophagus and the upper middle part was normal. Distal esophagus around 38 cm from the incisor showed evidence of esophagitis which was mild LA grade A. No stricture was noted. No webs, rings or varices were seen. Scope was then passed through the esophagus into the stomach. Stomach was examined both in straight and retroflexed view, which revealed normal cardia, fundus, in the upper part of the body. The distal body and especially the antrum pre-pyloric area showed evidence of severe gastritis. These erosions were patchy but there were almost superficial ulcers. No evidence of active bleeding or stigmata of recent bleed seen. Biopsies were obtained from the affected area using cold biopsy forceps. No varices were noted. The scope was passed through the normal pylorus into the duodenal bulb, and then to the second portion of duodenum. Patchy hyperemia noted suggestive of mild duodenitis but no distinct ulcer was seen in the duodenum. The scope was then removed. Patient tolerated the procedure well. No complications noted. Patient was then transferred to the recovery area in a stable condition. IMPRESSION: 1. Mild esophagitis. 2. Severe gastritis. 3. Mild duodenitis. RECOMMENDATIONS: 1. Advised to continue proton pump inhibitor, Prilosec 140 mg p.o. b.i.d. for a month, and then reduce it to once a day. 2. Follow up the biopsy report. If Helicobacter pylori is positive, we will need to treat. 3. Avoid NSAID usage. 4. I will start her on a regular diet. As far as her abdominal pain, this could be related to her gastritis. However, she has some coughing episodes. There is a question of possible respiratory ailment resulting in her episodes of coughing which can cause abdominal soreness, anterior abdominal muscle pain as well as syncopal episode could be associated with it too. Her blood pressure has been running a lower too. Question of possible ischemic injury to the bowel or to the liver parenchyma is also a possibility. Need to adjust the medication to get her blood pressure up, and need to find the etiology for her episodes of coughing that she has. As far as GI is concerned, she can continue on PPI's and avoid any NSAID. Follow up with me at the office. She will need a screening colonoscopy to check for polyps or tumors as an outpatient. cc: MD David Montiel MD
[2018-11-15] MEDS: ZYRTEC PO SCH (09:56)
[2018-11-15] MEDS: ZANAFLEX PO SCH ×2 (09:56→21:28)
[2018-11-15] MEDS: LEXAPRO PO SCH (09:56)
[2018-11-15] MEDS: NEXIUM IV SCH (09:56)
[2018-11-15] MEDS: ROBAXIN PO SCH ×3 (09:57→17:29)
[2018-11-15] MEDS: KLONOPIN PO SCH ×2 (09:57→21:27)
[2018-11-15] MEDS: NORCO-7.5 PO PRN ×3 (09:57→21:27)
[2018-11-15] MEDS: PRINZIDE 20/12.5MG PO SCH ×2 (09:59→21:33)
--- NOTE | 2018-11-15 10:48 | PROGRESS NOTE ---
DATE: 11/15/2018 Ms. Figueroa states she is feeling very sick right now. She is just coming out from the EGD procedure. She has severe gastritis as well as duodenitis and esophagitis. No evidence of active bleeding is noted. No ulceration noted. She is advised to continue the Prilosec and possibly Carafate which I will write her a prescriptions. Since she is feeling worse right now, we will discharge her tomorrow. The discharge medications has been approved. We will see her in the office in about the next 7 days. cc: David Francois MD
[2018-11-15] MEDS: DUONEB (A & A) INH PRN (19:55)
[2018-11-15] MEDS: LIPITOR PO SCH (21:28)
[2018-11-15] MEDS: ASPIRIN PO SCH (21:28)
[2018-11-16] MEDS: ZOFRAN IV PRN ×2 (03:19→08:23)
[2018-11-16] MEDS: NORCO-7.5 PO PRN ×3 (03:19→13:18)
[2018-11-16] MEDS: DILAUDID IV PRN ×2 (03:19→08:24)
[2018-11-16] MEDS: CARAFATE LIQUID PO SCH ×3 (03:19→13:28)
[2018-11-16 07:44] VITALS: BP 109/85
[2018-11-16] MEDS: ZYRTEC PO SCH (08:25)
[2018-11-16] MEDS: ZANAFLEX PO SCH (08:25)
[2018-11-16] MEDS: ROBAXIN PO SCH ×2 (08:25→13:28)
[2018-11-16] MEDS: LEXAPRO PO SCH (08:25)
[2018-11-16] MEDS: SODIUM CHLORIDE 0.9% INJ SCH (08:25)
[2018-11-16] MEDS: KLONOPIN PO SCH (08:25)
[2018-11-16] MEDS: NEXIUM IV SCH ×2 (08:26→10:41)
[2018-11-16] MEDS: PRINZIDE 20/12.5MG PO SCH (10:41)
--- NOTE | 2018-11-16 15:16 | DISCHARGE SUMMARY ---
ADMISSION DATE: 11/12/2018 DISCHARGE DATE: 11/16/2018 FINAL DIAGNOSES: 1. Syncope. 2. Severe gastritis. 3. Chronic obstructive pulmonary disease. DISCHARGE MEDICATIONS: Prilosec, Carafate, albuterol and Atrovent via nebulizer (nebulizers delivered to her home today). This is the first recent [facility] admission for this 58-year-old white female who presented to the emergency room after an episode of syncope. She does not remember what happened, but had some abdominal pain prior to the episode. Laboratory revealed mildly elevated lipase. She was admitted for further evaluation. GI consult was obtained with Dr. Bunch. PROCEDURES: EGD revealing severe gastritis. CT of her abdomen revealed COPD, diverticulosis, and no definite acute process. Chest x-ray showed no infiltrate or effusion. Heart size was normal. INITIAL LABORATORY: Hemoglobin 16.9, hematocrit 49.7, white blood count 8800, lipase 113. AST 122, ALT 105, alkaline phosphatase 148, glucose 116, calcium 8.0. HOSPITAL COURSE: She was placed on Nexium and given nebulizer treatments with albuterol and Atrovent. Amylase was rechecked on 11/13 and was 95. On 11/15 AST was 39, ALT 54, and alkaline phosphatase 98. Total bilirubin was 0.26. Abdominal pain has markedly improved. She has been eating fairly well for the last 24 hours. Breathing is better. She is discharged home on her usual medication plus Carafate q.i.d., Prilosec, and nebulizer with albuterol and Atrovent t.i.d. She is to return to see Dr. Joseph in 1 week for followup. cc: MD David Sarabia MD
== END 2018-11-16 13:50 | disposition home or self-care (01) ==
LOC: 4N 17:27 → ED 17:27 → SUATTDRO 11-13 01:55
PROVIDERS: ADMIT Internal Medicine; ATTEND Internal Medicine
CPT/HCPCS: 71020; 71046; 74177; 80048; 80053; 80076; 81001; 82150; 82550; 83690; 83880; 84484; 85025; 85610; 85730; 90732; 93005; 94640; 94761; A9270; J1170; J1200; J1720; J2270; J2405; J3010; J7030; Q9967

== ENCOUNTER 2019-03-11 17:37 | Inpatient (IN) ==
--- NOTE | 2019-03-11 18:11 | PROVIDER DOCUMENTATION ---
HPI-Chest Pain - General Chief Complaint: Chest Pain Stated Complaint: HEART PT--HEART MESSING UP Time Seen by Provider: 03/11/19 17:49 Source: patient Allergies/Adverse Reactions: Patient Allergies Allergy/AdvReac Type Severity Reaction Status Date / Time ketorolac tromethamine * Allergy Intermediate DIZZINESS Verified 03/11/19 18:46 [From Toradol] Sulfa (Sulfonamide Allergy Intermediate RASH Verified 03/11/19 18:46 Antibiotics) Iodinated Contrast Media Allergy Unknown ANAPHYLAXIS Verified 03/11/19 18:46 Home Medications: Home Medication List Medication Instructions Recorded Confirmed Last Taken Type Aspirin 81 mg PO QPM 05/01/12 03/11/19 03/11/19 15:00 History 325mg ATORVAstatin [Lipitor] 40 mg PO QHS tablet 08/30/17 03/11/19 03/10/19 Rx Hydrocodone/APAP 7.5 mg/325 mg 1 each PO TID PRN PRN 30 Days #90 08/30/17 03/11/19 03/11/19 Rx [[place]-7.5] tablet Albuterol Sulfate Inhaler 2 puff INH PRN PRN 09/10/18 03/11/19 09/10/18 History [Ventolin Hfa] Cetirizine HCl 10 mg PO DAILY 09/10/18 03/11/19 03/10/19 History Escitalopram Oxalate [Lexapro] 10 mg PO DAILY 09/10/18 03/11/19 03/10/19 History Fluticasone 50 Mcg Nasal [place] 1 spray LINUS PRN PRN 09/10/18 03/11/19 09/09/18 History [Flonase] Methocarbamol 750 mg PO TID 09/10/18 03/11/19 Unknown History Tizanidine HCl 4 mg PO BID 09/10/18 03/11/19 03/11/19 History LISINOpril/HCTZ [Prinzide 1 tab PO DAILY 11/12/18 03/11/19 03/10/19 History 20/12.5MG] Clonazepam [Klonopin] 2 mg PO HS tab 11/15/18 03/11/19 03/10/19 Rx Albuterol 2.5MG/Ipratrop 0.5MG 3 ml INH TID #90 neb 11/16/18 03/11/19 03/11/19 Rx [Duoneb (A & A)] Omeprazole [Prilosec] 20 mg PO DAILY #30 cap 11/16/18 03/11/19 03/10/19 Rx Clonazepam [Klonopin] 1 mg PO DAILY 03/11/19 03/11/19 03/11/19 History - History of Present Illness-CP Nature of Presenting Problem: Patient with a h/o HTN, HLD, Gerd, Anxiety/Depression, panic attack CAD s/p stent placement x2, c/o retrosternal chest pain , started around 3.30pm today. she states a throbbing, intermittent pain last 10mins. She took ASA 81mg x 3 shortly after onset. Pain radiates to the jaw, interscapular region and left shoulder. Has associated nausea but no vomiting. Pain does not look like her usual panic attack but similar to previous chest pain for which she had stent placement after detecting coronary artery disease by stress test after having neg troponins. Denies sob or diaphoresis Location: reports: other (retrosternal) Chest Pain Radiation: reports: jaw, shoulders, back Quality of Pain: reports: throbbing Onset/Duration: 4-6 hours ago Timing: still present Context/Activities at Onset: reports: none Modifying Factors: improves with: nothing Associated Symptoms: reports: nausea Aspirin Treatment Today: 81 mg x 3 Prior Chest Pain/Cardiac Workup: reports: cardiac cath (with stent placement) Similar Symptoms Previously?: Yes Recently Seen Here or By Another Healthcare Provider: Yes Review of Systems - Adult - REVIEW OF SYSTEMS - ADULT Constitutional: reports: no symptoms reported Eyes: reports: no symptoms reported Ears, Nose, Mouth & Throat: reports: no symptoms reported Cardiovascular: reports: see HPI Respiratory: reports: no symptoms reported Gastrointestinal: reports: no symptoms reported Genitourinary: reports: no symptoms reported Musculoskeletal: reports: no symptoms reported Integumentary: reports: no symptoms reported Neurological: reports: dizziness/vertigo (3 days ago) Psychiatric: reports: no symptoms reported Endocrine: reports: no symptoms reported Hematologic/Lymphatic: reports: no symptoms reported Allergic/Immunologic: reports: no symptoms reported Past History - Adult - PAST MEDICAL HISTORY-ADULT Review of Records: reports: Nursing Assessment Review, Medications Reviewed, Social history reviewed & non-contributory. Major Childhood Illnesses: reports: denies history Cardiovascular: reports: cardiac disease, CAD, HTN, hyperlipidemia, [place] Respiratory: reports: denies history Gastrointestinal: reports: GERD Obstetrical/Gynecological: reports: denies history Genitourinary: reports: denies history Musculoskeletal: reports: denies history Neurological: reports: denies history Endocrine/Immune: reports: denies history Other Conditions: reports: denies history - PRIOR SURGERIES/PROCEDURES Surgical/Procedure History: reports: appendectomy, cholecystectomy, cardiac stent, hysterectomy, , orthopedic (extremity), other - PRIOR HOSPITALIZATIONS Prior Hospitalizations: reports: for similar symptoms - IMMUNIZATION STATUS Childhood Immunizations: See Nurse Assessment Flu Vaccine: See Nurse Assessment - FAMILY HISTORY Family History: reviewed, not pertinent - SOCIAL HISTORY Smoking: cigarettes Substance Use: none/never Alcohol Use Frequency: never Physical Exam-General - PHYSICAL EXAM-ADULT Initial Vital Signs Reviewed: Yes - CONSTITUTIONAL General Appearance: appears well, alert, mild distress - EYES Eyes: PERRL/EOMI - HEAD, EARS, NOSE, MOUTH & THROAT HENMT: normocephalic/atraumatic - NECK Neck: non-tender, full range of motion, supple - RESPIRATORY Respiratory: lungs clear, normal breath sounds, no respiratory distress - CARDIOVASCULAR Cardiovascular: regular rate, rhythm, no edema - GASTROINTESTINAL (ABDOMEN) Abdominal Exam: non tender, soft - MUSCULOSKELETAL Extremity: normal range of motion, non-tender - SKIN Integumentary: normal color - NEUROLOGIC Neurologic: grossly normal - PSYCHIATRIC Psych/Mental Status: oriented x 3 Progress - PLAN OF CARE/RESULTS Progress/Plan/Lab Results: Vital Signs - 8 hr 03/11/19 17:44 03/11/19 18:45 03/11/19 18:46 Temperature 98.7 F Pulse Rate 83 72 74 Respiratory Rate 18 20 17 Blood Pressure 124/74 130/69 130/69 O2 Sat by Pulse Oximetry 95 96 94 L 03/11/19 19:00 03/11/19 19:15 03/11/19 19:39 Temperature Pulse Rate 71 76 69 Respiratory Rate 15 28 H 26 H Blood Pressure O2 Sat by Pulse Oximetry 95 94 L 97 03/11/19 19:45 03/11/19 20:00 03/11/19 20:15 Temperature Pulse Rate 68 69 73 Respiratory Rate 26 H 27 H 27 H Blood Pressure O2 Sat by Pulse Oximetry 97 96 94 L Laboratory Results - last 24 hr 03/11/19 03/11/19 03/11/19 18:57 18:57 18:57 WBC 10.55 RBC 5.05 Hgb 15.2 Hct 45.6 MCV 90.3 MCH 30.1 MCHC 33.3 RDW Std Deviation 13.2 Plt Count 179 MPV 9.4 Immature Gran % (Auto) 0.0 Neut % (Auto) 63.8 Lymph % (Auto) 28.9 [place] % (Auto) 6.2 Eos % (Auto) 0.9 Baso % (Auto) 0.2 Immature Gran # (Auto) 0.00 Neut # (Auto) 6.73 H Lymph # (Auto) 3.05 [place] # (Auto) 0.65 H Eos # (Auto) 0.10 Baso # (Auto) 0.02 PT INR PTT (Actin FS) Sodium 140 Potassium 3.9 Chloride 100 Carbon Dioxide 25 Anion Gap 15 BUN 8 Creatinine 0.7 Estimated GFR/1.73 m2 > 60 BUN/Creatinine Ratio 11 Glucose 94 Calculated Osmolality 277 Calcium 9.8 Total Bilirubin 0.32 AST 37 H ALT 37 H Alkaline Phosphatase 88 Creatine Kinase 65 Troponin T [id number] Pept 103 Total Protein 7.3 Albumin 4.4 Globulin 2.9 Albumin/Globulin Ratio 1.5 03/11/19 03/11/19 18:57 18:57 WBC RBC Hgb Hct MCV MCH MCHC RDW Std Deviation Plt Count MPV Immature Gran % (Auto) Neut % (Auto) Lymph % (Auto) [place] % (Auto) Eos % (Auto) Baso % (Auto) Immature Gran # (Auto) Neut # (Auto) Lymph # (Auto) [place] # (Auto) Eos # (Auto) Baso # (Auto) PT 12.0 INR 0.88 PTT (Actin FS) 30.1 Sodium Potassium Chloride Carbon Dioxide Anion Gap BUN Creatinine Estimated GFR/1.73 m2 BUN/Creatinine Ratio Glucose Calculated Osmolality Calcium Total Bilirubin AST ALT Alkaline Phosphatase Creatine Kinase Troponin T < 0.010 [id number] Pept Total Protein Albumin Globulin Albumin/Globulin Ratio Orders Category Date Time Status Cardiac Monitoring DIRECTED Care 03/11/19 17:47 Active Oxygen Therapy- ED Nursing DIRECTED Care 03/11/19 17:47 Active Saline Loc NOW Care 03/11/19 17:47 Active CHEST-2 VIEWS [RAD] Stat Exams 03/11/19 17:47 Completed CBC WITH ELECTRONIC DIFF [HEME] Stat Lab 03/11/19 18:57 Completed CK PROFILE [SP CHEM] Stat Lab 03/11/19 18:57 Completed COMPREHENSIVE METABOLIC PANEL [CHEM] Stat Lab 03/11/19 18:57 Completed PRO B-NATRIURETIC PEPTIDE Stat Lab 03/11/19 18:57 Completed PROTIME WITH INR [COAG] Stat Lab 03/11/19 18:57 Completed PTT [COAG] Stat Lab 03/11/19 18:57 Completed TROPONIN T Stat Lab 03/11/19 18:57 Completed TROPONIN T Stat Lab 03/11/19 20:05 Ordered Morphine Med 03/11/19 20:34 Discontinued 4 mg IV NOW ONE Nitroglycerin Sl [Nitroglycerin] Med 03/11/19 20:10 Discontinued 0.4 mg SL NOW ONE Ondansetron [Zofran] Med 03/11/19 20:34 Discontinued 4 mg IV NOW ONE CP/SOB/Palp >45 yrs of Age Stat Oth 03/11/19 17:46 Ordered EKG [EKG] Stat Ther 03/11/19 17:47 Draft Result Diagrams: 03/11/19 18:57 03/11/19 18:57 - REASSESSMENT Reassessment #1 Status: unchanged (Patient continues to report chest pain after receiving NTG, also reports new onset headache. Will give morphine , zofran and Gi cocktail and call for admission) - EKG 1 Time of EKG reading by physician:: 18:16 EKG Read and Signed by:: Carlos Clemons EKG Interpretation (*Must complete 3 of following elements*): Normal Rate: 79 Rhythm: sinus [place]: normal QRS: normal - CONSULTS/PCP/HOSPITALIST Notification #1 *Consult/PCP/Hospitalist*: Dr Ch Time Discussed: 08:40 Consult Disposition: Admit Departure - Departure Date of Disposition Decision: 03/11/19 Time of Disposition Decision: 20:52 DIAGNOSIS: Chest pain Qualifiers: Chest pain type: unspecified Qualified Code(s): R07.9 - Chest pain, unspecified Disposition: ADMITTED INPATIENT 09 Certified Medical Emergency: Emergent Condition: Fair Referrals and Follow-Ups: David Francois MD [Primary Care Provider] - - Critical Care Note This patient required my direct & personal management of CC.: No Attestation - Physician/ NIKA Attestation Patient care was provided by Advanced Practice Provider:: No The physician spent face to face time with patient:: Yes Advanced Practice Provider documentation review:: Supervising physician onsite and consulted in the evaluation and care of this patient. The physician did have a face to face encounter with the patient.
--- NOTE | 2019-03-11 18:59 | Diag Imaging Result Doc PS360 ---
CHEST-2 VIEWS - 03/11/2019 INDICATION: chest pain COMPARISON: 11/12/2018 FINDINGS: There is some stable mild peripheral pulmonary fibrosis in the bases. No infiltrates. Heart size is normal. No pneumothorax or pleural effusion. IMPRESSION: No acute process. Electronically signed by Cortes Gabriel 03/11/2019 6:56 PM
[2019-03-11 19:07] LABS: BASO# 0.02 X1000 (0.0-0.2); BASO% 0.2 % (0.0-0.8); EOS% 0.9 % (0.0-10.0); HEMATOCRIT 45.6 % (37.0-47.0); HEMOGLOBIN 15.2 g/dL (12.0-16.0); LYMPH# 3.05 X1000 (1.2-3.4); LYMPH% 28.9 % (20.5-51.1); MCH 30.1 PG (27-31); MCHC 33.3 g/dL (33-37); MCV 90.3 FL (81-99); MONO# 0.65 X1000 (0.11-0.59); MONO% 6.2 % (1.7-9.3); MPV 9.4 FL (7.4-10.4); NEUT# 6.73 X1000 (1.4-6.5); NEUT% 63.8 % (42.2-75.2); PLT 179 X1000 (130-400); RBC 5.05 XMIL (4.2-5.4); RDW 13.2 % (11.5-14.5); WBC 10.55 X1000 (4.8-10.8)
[2019-03-11 19:15] LABS: INR 0.88
[2019-03-11 19:16] LABS: PTT 30.1 Seconds (22.3-41.8)
[2019-03-11 19:35] LABS: AGAP 15; ALB/GLOB RATIO 1.5; ALBUMIN 4.4 g/dL (3.5-5.0); ALKALINE PHOSPHATASE 88 U/L (32-104); BUN 8 mg/dL (8-22); CALCIUM 9.8 mg/dL (8.8-10.2); CHLORIDE 100 mmol/L (98-107); CK PROFILE 65 U/L (24-173); COSMO 277; CREATININE 0.7 mg/dL (0.5-0.9); ESTIMATED GFR > 60; GLUCOSE 94 mg/dL (70-104); GOT 37 U/L (10-30); GPT 37 U/L (10-36); POTASSIUM 3.9 mmol/L (3.5-5.1); SODIUM 140 mmol/L (136-145); TCO2 25 mmol/L (25-35); TOTAL BILIRUBIN 0.32 mg/dL (0.20-1.00); TOTAL PROTEIN 7.3 g/dL (6.3-8.3)
[2019-03-11] MEDS ORDERED: NITROGLYCERIN SL ONE (20:10)
[2019-03-11] MEDS ORDERED: ZOFRAN IV ONE (20:34)
[2019-03-11] MEDS ORDERED: MORPHINE IV ONE (20:34)
--- NOTE | 2019-03-11 20:42 | EKG Report ---
Test Performed on : 03/11/2019 5:37:23 PM Test Reason : chest pain Blood Pressure : / mmHG Vent. Rate : 079 BPM Atrial Rate : 079 BPM P-R Int : 154 ms QRS Dur : 096 ms QT Int : 372 ms P-R-T Axes : 070 051 046 degrees QTc Int : 426 ms Normal sinus rhythm. Normal ECG When compared with ECG of 12-NOV-2018 17:40, No significant change was found Unconfirmed Result
[2019-03-11] MEDS ORDERED: G.I. COCKTAIL PO ONE (20:46)
[2019-03-11] MEDS ORDERED: NICODERM PATCH TD PRN (21:55)
[2019-03-11] MEDS: NS 1,000 ML IV SCH (22:18)
--- NOTE | 2019-03-11 22:52 | HISTORY AND PHYSICAL ---
CHIEF COMPLAINT: Chest pain for less than 1 day. HISTORY OF PRESENT ILLNESS: Ms. Janet Figueroa is a 58-year-old female and she does have a history of coronary artery disease status post PTCA with stenting of 2 vessels in 2011, COPD, hyperlipidemia, gastroesophageal reflux disease. She presents to the hospital because of mid chest pain which she noticed at about mid afternoon today. She describes the pain as sharp intermittent and when she does have the pain, it last about 10 minutes. It radiates to her left shoulder region as well as her back. It is improved with rest and made worse with activity. Initial troponin levels have been negative. X-ray of the chest showed no acute process. EKG did not reveal any acute process to suggest acute coronary syndrome. The patient was seen and evaluated in the ER. She will now be admitted to the floor now for further management. PAST MEDICAL HISTORY: Is significant for coronary artery disease, COPD, hyperlipidemia, gastroesophageal reflux disease. PAST SURGICAL HISTORY: She has had facial reconstruction surgery, section, appendectomy, hysterectomy, cholecystectomy, left knee surgery and also PTCA with 2 stents in 2011. SOCIAL HISTORY: Patient smokes cigarettes. No alcohol or drug use. ALLERGIES: She is allergic to sulfa, IV contrast dye and Toradol. FAMILY HISTORY: Positive for coronary artery disease as well as cancer. MEDICATIONS: Include the following: Aspirin 81 mg p.o. once a day, atorvastatin 40 mg p.o. daily, hydrocodone 7.5/325 one p.o. 3 times a day p.r.n., Ventolin HFA 2 puffs p.r.n., cetirizine 10 mg p.o. daily, Lexapro 20 mg p.o. daily, Flonase 1 spray nasally p.r.n., methocarbamol 750 mg p.o. 3 times a day, tizanidine 4 mg p.o. twice a day, lisinopril/ hydrochlorothiazide 1 p.o. daily, clonazepam 2 mg p.o. at bedtime, DuoNeb 3 mL 3 times a day, omeprazole 20 mg p.o. daily, Klonopin 1 mg p.o. daily. REVIEW OF SYSTEMS: Constitutional: No fever. 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 ENT: She has sinus problems. Respiratory: Has cough. GI: Has nausea with diarrhea and also constipation. : No dysuria. Musculoskeletal: Has joint pain. Dermatology: No skin lesions. Hematology: No bleeding problems. Endocrinology: No thyroid disease or diabetes. Psychiatric: She does have anxiety with depression. Allergy/immunology: She does have symptoms suggestive of allergic rhinitis. EXAMINATION: Vital Signs Are As Follows: Temperature 98.7 degrees, pulse of 83, respirations 18, blood pressure 124/74, oxygen saturation is 95%. HEENT: She is atraumatic, normocephalic. Eyes anicteric. Extraocular movements intact. No significant oral lesions noted. Neck: No lymphadenopathy or thyromegaly. Cardiovascular: S1, S2. Respiratory: Has evidence of good entry bilaterally. Abdomen: Soft, nontender. No masses felt. Extremities: No evidence of edema. Central nervous system: No obvious focal deficit noted. LABORATORY DATA: WBC 10.55, hematocrit is 45.6, with a platelet count of 179,000. INR is 0.8. Sodium is 140, potassium 3.9, chloride is 100, bicarb 25, BUN is 15, BUN is 8, creatinine 2.7. AST is 37, ALT is 37. Troponin less than 0.010 x2 sets. EKG shows normal sinus rhythm. Chest x-ray shows no acute process. ASSESSMENT AND PLAN: 1. Chest pain with history of coronary artery disease. We will maintain patient on telemetry. Follow up on serial cardiac enzymes. Maintain patient on aspirin, beta jose, nitroglycerin p.r.n. for chest pain. We will check a D-dimer level and if elevated, we will obtain a CTA of the chest. We will also get a 2D echo. Lipid panel. Consult with Cardiology. 2. Chronic obstructive pulmonary disease. Nebulized bronchodilators. 3. Hyperlipidemia. Continue atorvastatin. 4. Gastroesophageal reflux disease. Continue proton pump inhibitor. 5. History of presyncope. Obtain a CT scan of the brain, carotid Doppler study. Follow up on 2D echo of the heart. 6. Abnormal liver function tests. Check hepatitis panel as well as abdominal ultrasound. 7. Tobacco use history. Nicotine patch recommended. 8. Deep vein thrombosis prophylaxis. Lovenox. cc: Rod Murrieta MD
[2019-03-11] MEDS: DUONEB (A & A) INH SCH (23:02)
[2019-03-11] MEDS ORDERED: FLONASE NAS PRN (23:21)
[2019-03-11] MEDS ORDERED: NITROGLYCERIN TOP PRN (23:21)
[2019-03-11] MEDS ORDERED: COREG PO SCH (23:30)
[2019-03-12] MEDS: KLONOPIN PO SCH ×3 (00:38→21:00)
[2019-03-12] MEDS: LIPITOR PO SCH ×2 (00:39→20:54)
[2019-03-12] MEDS: ASPIRIN PO SCH ×2 (00:39→20:54)
[2019-03-12] MEDS: NORCO-7.5 PO PRN ×4 (00:52→23:14)
[2019-03-12] MEDS ORDERED: PHENERGAN PO ONE (02:48)
[2019-03-12] MEDS ORDERED: MORPHINE IV ONE (02:49)
[2019-03-12] MEDS: DUONEB (A & A) INH SCH ×6 (03:44→22:51)
[2019-03-12] MEDS: ROBAXIN PO SCH ×4 (07:02→20:55)
[2019-03-12] MEDS: ZANAFLEX PO SCH ×3 (07:02→20:55)
--- NOTE | 2019-03-12 07:02 | Diag Imaging Result Doc PS360 ---
EXAM: CT HEAD W/O CONTRAST 03/11/2019 HISTORY: pre -syncope TECHNIQUE: This exam was performed using automated exposure control, adjustment of mA or kV according to patient size, and/or use of iterative reconstruction technique. COMMENT: There is no evidence of mass effect, bleed, abnormal extra-axial fluid collection, or hydrocephalus. There are some small lucencies present in the external capsules bilaterally. There are no previous studies available for comparison. The paranasal sinuses are clear. The calvarium is intact. IMPRESSION: No evidence of acute intracranial disease. Electronically signed by Jorge Biggs 03/12/2019 7:00 AM
[2019-03-12 07:26] LABS: BASO# 0.01 X1000 (0.0-0.2); BASO% 0.1 % (0.0-0.8); EOS% 1.5 % (0.0-10.0); HEMATOCRIT 40.7 % (37.0-47.0); HEMOGLOBIN 13.2 g/dL (12.0-16.0); LYMPH# 3.05 X1000 (1.2-3.4); LYMPH% 45.5 % (20.5-51.1); MCH 30.2 PG (27-31); MCHC 32.4 g/dL (33-37); MCV 93.1 FL (81-99); MONO% 7.5 % (1.7-9.3); MPV 10.1 FL (7.4-10.4); NEUT# 3.04 X1000 (1.4-6.5); NEUT% 45.4 % (42.2-75.2); PLT 152 X1000 (130-400); RBC 4.37 XMIL (4.2-5.4); RDW 13.3 % (11.5-14.5)
[2019-03-12 07:59] LABS: AGAP 12; BUN 12 mg/dL (8-22); CALCIUM 7.8 mg/dL (8.8-10.2); CHLORIDE 104 mmol/L (98-107); CHOLESTEROL 92 mg/dL (0-200); CK PROFILE 54 U/L (24-173); COSMO 283; CREATININE 0.8 mg/dL (0.5-0.9); ESTIMATED GFR > 60; GLUCOSE 96 mg/dL (70-104); HDL 31 mg/dL (45-65); LDL 37 mg/dL; POTASSIUM 3.7 mmol/L (3.5-5.1); SODIUM 142 mmol/L (136-145); TCO2 26 mmol/L (25-35); TRIGLYCERIDES 121 mg/dL (35-135); VLDL 24 mg/dL
--- NOTE | 2019-03-12 08:09 | Diag Imaging Result Doc PS360 ---
EXAM: US ABDOMEN-COMPLETE 03/12/2019 HISTORY: abnormal lfts TECHNIQUE: Abdominal ultrasound COMMENT: The visualized portions of the pancreatic body are normal in appearance. Most of the tail and head are obscured. The liver is unremarkable in appearance. The kidneys are without evidence of hydronephrosis or mass. The spleen is not enlarged. The visualized portions of the aorta and inferior vena cava are within normal limits. There is no evidence of biliary dilatation. The gallbladder is surgically absent. There are no abnormal fluid collections. IMPRESSION: No evidence of acute disease. Electronically signed by Jorge Biggs 03/12/2019 8:06 AM
[2019-03-12] MEDS ORDERED: PRINZIDE 20/12.5MG PO SCH (09:00)
[2019-03-12] MEDS ORDERED: LOVENOX SUBQ SCH (09:00)
--- NOTE | 2019-03-12 09:44 | PROGRESS NOTE ---
DATE: 03/12/2019 Ms. Figueroa was admitted last night with severe chest pain. She has significant coronary artery disease. She continues to smoke. She had a CT scan of the brain which was negative. She has gone for echo and carotid flow studies. Abdominal ultrasound was unremarkable. Her vital signs are stable. We will reevaluate her later on. -0 cc: David Francois MD
[2019-03-12] MEDS ORDERED: NITROGLYCERIN TOP SCH (10:00)
[2019-03-12] MEDS ORDERED: SOLU-MEDROL IV ONE (10:03)
[2019-03-12] MEDS ORDERED: BENADRYL IV ONE (10:04)
[2019-03-12] MEDS: ZYRTEC PO SCH (10:26)
[2019-03-12] MEDS: PRILOSEC PO SCH (10:27)
[2019-03-12] MEDS: LEXAPRO PO SCH (10:27)
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
[2019-03-12] MEDS: LOPRESSOR PO SCH ×3 (11:14→22:42)
[2019-03-12] MEDS ORDERED: HEPARIN 1000 UNITS/NS 2,000 UNIT/1,000 ML IV.SOLN ONE (11:27)
[2019-03-12] MEDS ORDERED: VERSED ONE (12:40)
[2019-03-12] MEDS ORDERED: MORPHINE ONE (12:41)
[2019-03-12] MEDS ORDERED: CLAVE TWINSITE 32 IN 11959 ONE (12:41)
[2019-03-12] MEDS ORDERED: BENADRYL ONE (13:00)
[2019-03-12] MEDS: NS 1,000 ML IV SCH ×2 (13:40→23:15)
[2019-03-12] MEDS ORDERED: PEPCID IV ONE (13:44)
[2019-03-12] MEDS ORDERED: SODIUM CHLORIDE 0.9% INJ ONE (13:44)
--- NOTE | 2019-03-12 14:12 | EKG Report ---
Test Performed on : 03/12/2019 1:47:19 PM Test Reason : post cath Blood Pressure : / mmHG Vent. Rate : 055 BPM Atrial Rate : 055 BPM P-R Int : 166 ms QRS Dur : 098 ms QT Int : 456 ms P-R-T Axes : 052 055 049 degrees QTc Int : 436 ms Sinus bradycardia. Otherwise normal ECG When compared with ECG of 11-MAR-2019 17:37, (Unconfirmed) No significant change was found Confirmed by Sd MATA, Charles Montero ([id number]) on 03/13/2019 7:44:03 AM
--- NOTE | 2019-03-12 19:36 | ECHO REPORT ---
ORDER DATE: 03/12/2019 INDICATION: Chest pain. REQUESTING PHYSICIAN: Hospitalist. M-MODE MEASUREMENTS: Left ventricle end diastole: 4.5. Left ventricle end systole: 2.4. Posterior wall: 1.0. Interventricular septum: 1.0. Left atrium: 4.4. Aortic diameter: 2.3. SUMMARY OF 2-DIMENSIONAL IMAGIN. Left ventricular function appears to be hyperdynamic, ejection fraction of 65% to 70%. No wall motion abnormality noted. 2. The aortic valve looks normal. Color flow mapping indicates a mild degree of regurgitation. 3. The pulmonic valve looks normal. Color flow mapping unremarkable. 4. The tricuspid valve shows a mild degree of regurgitation. Pulmonary pressure estimated at 39 mmHg. The inferior vena cava is not dilated. 5. The mitral valve looks normal. Color flow mapping unremarkable. 6. Pulsed wave Doppler of mitral inflow shows normal E/A ratio. 7. Tissue Doppler of septal and lateral mitral annulus averages 11 cm. There is no diastolic dysfunction. 8. There is mild enlargement of the left atrium. 9. The right-sided chambers appear to be unremarkable. 10.There is no pericardial effusion, no mass, and no thrombus. Clinical correlation recommended. cc: MD Rod Khan MD Amit V. Vora, MD
[2019-03-13] MEDS ORDERED: ZOFRAN IV PRN (01:07)
[2019-03-13] MEDS: NS 1,000 ML IV SCH ×2 (01:32→14:17)
[2019-03-13] MEDS: DUONEB (A & A) INH SCH ×6 (03:18→23:42)
[2019-03-13] MEDS: PRILOSEC PO SCH ×2 (05:54→07:32)
--- NOTE | 2019-03-13 06:30 | Carotid Study ---
DATE: 03/12/2019 DATE OF STUDY: 03/12/2019. REFERRING PHYSICIAN: Dr. Rod Murrieta MD READING PHYSICIAN: Dr. Hagen. MANAGER OF PROJECT MANAGEMENT: Broderick. INDICATIONS: Syncope. FINDINGS: There is no significant plaque elevated velocities or turbulent flow in either carotid system. There was antegrade vertebral flow bilaterally. The percent stenosis is 0 to 39 percent bilaterally. INTERPRETATION: Normal carotid imaging study. cc: MD Rod Atkinson MD Amit V. Vora, MD
[2019-03-13] MEDS: LEXAPRO PO SCH (08:30)
[2019-03-13] MEDS: ZANAFLEX PO SCH ×2 (08:30→20:52)
[2019-03-13] MEDS: KLONOPIN PO SCH ×2 (08:30→20:51)
[2019-03-13] MEDS: ROBAXIN PO SCH ×3 (08:30→20:51)
[2019-03-13] MEDS: ZYRTEC PO SCH (08:30)
[2019-03-13] MEDS: LOPRESSOR PO SCH ×2 (08:30→20:54)
--- NOTE | 2019-03-13 09:21 | PROGRESS NOTE ---
DATE: 03/13/2019 SUBJECTIVE: Ms. Figueroa who was admitted for chest pain had some chest pain last night, it is relieved now. She had a repeat EKG which was unremarkable. So far, the troponins have been negative. She had an echocardiogram which was unremarkable except for left ventricular hypertrophy. Carotid flow studies are unremarkable. Her lungs are clear. Heart sounds are normal. She is in regular sinus rhythm. We will continue with the current management on her. She is seen by Dr. Ignacio as for Cardiology consult. cc: David Francois MD
[2019-03-13] MEDS: PHENERGAN PO SCH ×3 (09:55→20:52)
--- NOTE | 2019-03-13 10:37 | CARDIAC CATH REPORT ---
PROCEDURE PERFORMED: Left heart catheterization and selective coronary angiography and left ventriculography. INDICATIONS: Recurrent chest discomfort suspicious for unstable angina in patient with known coronary disease and previous coronary angioplasty/stenting of left anterior descending coronary with bare metal stent in 2012. ENTRY SITE: Right femoral artery. CATHETERS USED: 5-Kazakh JL4, 3DRC, and angled pigtail. TECHNIQUE: After intravenous sedation with Benadryl 25 mg IV, local anesthesia of lidocaine was applied over right femoral artery. Arterial access was established with placement of a 5-Kazakh sheath in right femoral artery using modified Seldinger technique. Selective coronary angiography was performed, followed by left heart catheterization and left ventriculography. Upon completion of procedure, arterial sheath was removed from right femoral artery and hemostasis facilitated with manual pressure. The patient tolerated the procedure without apparent complications. FINDINGS: Hemodynamics: Aortic pressure 85/50 with a mean of 65. Left ventricular pressure 85 over EDP of 16. Comments on hemodynamics: There is no significant gradient across aortic valve demonstrated on pullback from left ventricle. ANGIOGRAPHY: 1. Left ventriculogram: The left ventricle is of normal size. Estimated left ventricular ejection fraction approximately 50%. There were no wall motion abnormalities evident on VORA projection. There is no significant mitral regurgitation. 2. Left main coronary: Left main coronary is free of significant coronary stenosis. 3. Left anterior descending coronary: The left anterior descending coronary artery gives rise to a small to medium size diagonal branch proximally, which appears to have a moderate (70%) stenosis proximally. This vessel is relatively smaller caliber, less than 2 mm in diameter. Just after the origin of this first diagonal branch, there is a stented region in the proximal left anterior descending coronary. The stented region is widely patent. The remainder of the left anterior descending coronary and its branches are free of significant coronary stenosis. 4. Left circumflex: The left circumflex coronary and its branches are free of significant coronary stenosis. 5. Right coronary: The dominant right coronary and its branches are free of significant coronary stenosis. CONCLUSIONS: 1. Estimated left ventricular ejection fraction approximately 50% without regional wall motion abnormality evident on VORA projection. 2. Right-dominant coronary anatomy with widely patent stent in proximal left anterior descending coronary and moderate stenosis proximally and relatively smaller caliber first diagonal branch. RECOMMENDATIONS: Medical management of patient's coronary atherosclerosis, along with continued efforts at coronary risk factor modification recommended. cc: MD David Schafer MD [facility]
[2019-03-13] MEDS: NORCO-7.5 PO PRN (11:45)
[2019-03-13 12:12] LABS: HEPATITIS PROFILE ACUTE SEE COMMENTS
[2019-03-13] MEDS: PROTONIX PO SCH (16:00)
[2019-03-13] MEDS: IMDUR PO SCH (16:00)
--- NOTE | 2019-03-13 16:41 | PROGRESS NOTE ---
DATE: 03/13/2019 SUBJECTIVE: Patient relates an episode of chest discomfort with atypical features last night, while she was in bed. She describes vague central chest discomfort and felt flushed. She also relates some numbness around her mouth. Symptoms resolved spontaneously. OBJECTIVE: Blood pressure 103/52, heart rate 70, oxygen saturation 97%. There is no significant jugular venous distention. Chest: Clear to auscultation. Cardiac: Regular rate and rhythm without appreciable murmur or gallop. There is no evidence of peripheral edema. IMPRESSION: 1. Chest discomfort, recurrent, with primary atypical features. 2. Atherosclerotic coronary disease. Coronary angiography yesterday dictated continued medical management. Stent in left anterior descending artery widely patent. She did have some moderate stenosis and small diagonal branch. 3. Hyperlipidemia. 4. Obesity. 5. Chronic obstructive pulmonary disease. 6. Chronic pain disorder. RECOMMENDATIONS: 1. Continue medical management of coronary atherosclerosis. Will add long-acting nitrates. 2. Consider alternative etiologies for patient's chest symptoms. Will switch from omeprazole to Protonix. 3. Patient clinically stable from a cardiovascular standpoint to go home soon. I will see her further on an as-needed basis. cc: MD David Schafer MD
[2019-03-13] MEDS: PERCOCET-5 PO PRN ×2 (16:48→22:13)
[2019-03-13] MEDS: ASPIRIN PO SCH (20:52)
[2019-03-13] MEDS: LIPITOR PO SCH (20:52)
--- NOTE | 2019-03-13 22:49 | EKG Report ---
Test Performed on : 03/13/2019 10:35:27 PM Test Reason : Chest Pain Blood Pressure : / mmHG Vent. Rate : 070 BPM Atrial Rate : 070 BPM P-R Int : 156 ms QRS Dur : 104 ms QT Int : 402 ms P-R-T Axes : 065 056 051 degrees QTc Int : 434 ms Normal sinus rhythm. Normal ECG When compared with ECG of 12-MAR-2019 13:47, No significant change was found Confirmed by Sd MATA, Charles Montero ([id number]) on 03/14/2019 7:37:14 AM
[2019-03-14] MEDS: DUONEB (A & A) INH SCH ×6 (03:29→23:07)
[2019-03-14] MEDS: PROTONIX PO SCH ×2 (05:41→07:24)
[2019-03-14] MEDS: PERCOCET-5 PO PRN ×3 (05:41→22:04)
[2019-03-14] MEDS: LEXAPRO PO SCH (08:43)
[2019-03-14] MEDS: LOPRESSOR PO SCH ×2 (08:43→20:58)
[2019-03-14] MEDS: PHENERGAN PO SCH ×3 (08:43→20:58)
[2019-03-14] MEDS: IMDUR PO SCH (08:43)
[2019-03-14] MEDS: ROBAXIN PO SCH ×3 (08:43→20:58)
[2019-03-14] MEDS: ZYRTEC PO SCH (08:43)
[2019-03-14] MEDS: ZANAFLEX PO SCH ×2 (08:43→20:58)
[2019-03-14] MEDS: KLONOPIN PO SCH ×2 (08:50→20:57)
--- NOTE | 2019-03-14 12:27 | PROGRESS NOTE ---
DATE: 03/14/2019 SUBJECTIVE: Ms. Figueroa says she is not feeling well. She had some chest pain last night. She is hypotensive this morning. She was placed on Imdur yesterday. It could be that which is giving her low blood pressure. It was 81/29. OBJECTIVE: She had catheterization studies done yesterday which revealed a 50% ejection fraction. The left main coronary was clean. The left circumflex was free of stenosis. The left anterior descending artery gave rise to a small to medium-sized diagonal branch with 70% stenosis. Right coronary artery was free. Left circumflex was also free. PLAN: It was decided that she would be treated medically. We will watch her closely since she is hypotensive. cc: David Francois MD
[2019-03-14 13:19] LABS: HCV BY PCR SEE COMMENTS
[2019-03-14] MEDS: LIPITOR PO SCH (20:58)
[2019-03-14] MEDS: ASPIRIN PO SCH (20:59)
[2019-03-15] MEDS: KLONOPIN PO SCH ×2 (01:01→08:37)
[2019-03-15] MEDS: DUONEB (A & A) INH SCH ×3 (03:43→11:35)
[2019-03-15] MEDS: PROTONIX PO SCH (06:35)
[2019-03-15] MEDS: ZANAFLEX PO SCH (08:36)
[2019-03-15] MEDS: PHENERGAN PO SCH (08:36)
[2019-03-15] MEDS: LEXAPRO PO SCH (08:36)
[2019-03-15] MEDS: IMDUR PO SCH (08:36)
[2019-03-15] MEDS: PERCOCET-5 PO PRN (08:36)
[2019-03-15] MEDS: ROBAXIN PO SCH (08:36)
[2019-03-15] MEDS: LOPRESSOR PO SCH (08:36)
[2019-03-15] MEDS: ZYRTEC PO SCH (08:36)
--- NOTE | 2019-03-15 12:28 | PROGRESS NOTE ---
DATE: 03/15/2019 SUBJECTIVE: Ms Figueroa had hepatitis panel which revealed her antibodies positive, reactive for hepatitis C. She also had HCV RNA performed which was severely low, was 5.87. OBJECTIVE: Her blood pressure is better. Vital signs are well. PLAN: We will discharge her today as she is feeling better. She does not have any chest pain. cc: David Francois MD
[2019-03-15 12:47] VITALS: BP 115/81
--- NOTE | 2019-03-15 15:08 | DISCHARGE SUMMARY ---
ADMISSION DATE: 03/11/2019 DISCHARGE DATE: 03/15/2019 Ms. Figueroa, who is a 58-year-old white female admitted with chest pain. She has a known case of coronary artery disease. Her EKG reveals normal EKG with normal sinus rhythm, no significant change was found. A CT scan of the brain did not reveal any evidence of acute intracranial disease. An abdominal ultrasound did not show any evidence of acute disease. The gallbladder was surgically absent. Doppler echocardiogram revealed left ventricular function appeared to be hyperdynamic, ejection fraction 66%. There was mild enlargement of the left atrium. No pericardial effusion was noted. She had a cardiac cath performed by Dr. Ignacio who found that the left ventricle size was normal. Ejection fraction was 50%. Left main artery, left circumflex artery and its branches. Right coronary artery normal. Left anterior descending artery gave rise to a small to medium size diagonal branch which was about 70% blocked. It was decided that she would be treated medically. Imdur was started and she had some hypotension. For that, we kept her an extra day. At present we are going to hold on her lisinopril and metoprolol. However, we will continue the Imdur. Her other lab data revealed CBC was unremarkable. INR was 0.88. Electrolytes are normal. She did well after the catheterization studies and she is being discharged. She also will be followed by Dr. Ignacio and I will see her in the office in about 4 days. I asked her to bring all her medications at that time. FINAL DIAGNOSIS: Chest pain, angina pectoralis. She was given prescription for Imdur. cc: David Francois MD [facility]
== END 2019-03-15 15:45 | disposition home or self-care (01) | DRG 287 ==
LOC: ED 17:37 → SUATTDRO 23:20 → 4N 23:20 → 2N 03-12 13:07
PROVIDERS: ADMIT Internal Medicine; ATTEND Internal Medicine

== ENCOUNTER 2019-06-12 10:23 | Inpatient (IN) ==
--- NOTE | 2019-06-12 12:31 | EKG Report ---
Test Performed on : 06/12/2019 12:22:33 PM Test Reason : chest pain Blood Pressure : / mmHG Vent. Rate : 098 BPM Atrial Rate : 098 BPM P-R Int : 160 ms QRS Dur : 096 ms QT Int : 358 ms P-R-T Axes : 080 061 061 degrees QTc Int : 457 ms Normal sinus rhythm. Normal ECG When compared with ECG of 13-MAR-2019 22:35, No significant change was found Confirmed by Henry MATA, Raheel Pitts ([id number]) on 06/15/2019 9:22:18 AM
[2019-06-12 12:57] LABS: ALLEN TEST YES; BE -0.2 mmoll (-3.0-3.0); BLOOD TYPE ARTERIAL; HCO3-(ACT) 24.4 mmoll (20.0-26.0); METHB 0.3 % (0.0-1.5); O2(CT) 17.4 mL/dL (15.0-23.0); PCO2(98.6) 37 mmHg (35-45); SAMPLE BLOOD; SAO2 89.5 % (95.0-100.0); THB 14.7 g/dL (11.5-17.4); pH(98.6) 7.42 (7.35-7.45)
[2019-06-12 12:59] LABS: PO2(98.6) 49 mmHg (60-100)
[2019-06-12 13:00] LABS: MODALITY ROOM AIR; O2HB 84.5 % (95.0-99.0)
[2019-06-12 13:15] LABS: WBC 17.64 X1000 (4.8-10.8)
[2019-06-12 13:17] LABS: EOS% 0.6 % (0.0-10.0); HEMATOCRIT 42.8 % (37.0-47.0); HEMOGLOBIN 14.3 g/dL (12.0-16.0); LYMPH# 1.78 X1000 (1.2-3.4); LYMPH% 10.1 % (20.5-51.1); MCH 32.5 PG (27-31); MCHC 33.4 g/dL (33-37); MCV 97.3 FL (81-99); MONO# 0.77 X1000 (0.11-0.59); MONO% 4.4 % (1.7-9.3); MPV 9.9 FL (7.4-10.4); PLT 211 X1000 (130-400); RDW 12.9 % (11.5-14.5)
[2019-06-12] MEDS: NORCO-7.5 PO PRN ×2 (13:36→17:53)
[2019-06-12 13:39] LABS: ALB/GLOB RATIO 1.4; TOTAL BILIRUBIN 0.45 mg/dL (0.20-1.00); TOTAL PROTEIN 6.8 g/dL (6.3-8.3)
[2019-06-12 13:41] LABS: LYMPHS 13 % (21-51); SEGS 87 % (42-75)
[2019-06-12] MEDS ORDERED: DUONEB (A & A) INH SCH (15:00)
[2019-06-12] MEDS: LOVENOX SUBQ SCH (17:53)
[2019-06-12] MEDS: TUSSIONEX LIQUID PO SCH ×2 (17:54→20:43)
[2019-06-12] MEDS: SOLU-MEDROL IV SCH (18:23)
[2019-06-12] MEDS: ROCEPHIN 1 GM in NS 50 ML IV SCH (18:23)
[2019-06-12] MEDS: KLONOPIN PO PRN ×2 (19:29→20:44)
[2019-06-12] MEDS: ZITHROMAX 500 MG/NS 500 MG/250 ML IVPB IV SCH (19:29)
[2019-06-12] MEDS: DUONEB (A & A) INH SCH ×2 (19:45→23:26)
[2019-06-12] MEDS ORDERED: MAALOX PLUS LIQUID PO ONE (20:12)
[2019-06-12] MEDS: LIPITOR PO SCH (20:43)
[2019-06-12] MEDS: CARAFATE PO SCH (20:43)
[2019-06-12] MEDS: VOLTAREN PO SCH (20:44)
[2019-06-12] MEDS: LEXAPRO PO SCH (20:44)
[2019-06-12] MEDS: ASPIRIN PO SCH (20:44)
[2019-06-13] MEDS: DUONEB (A & A) INH SCH ×6 (03:21→23:45)
[2019-06-13] MEDS: PHENERGAN PO PRN ×3 (03:49→21:09)
[2019-06-13] MEDS: NORCO-7.5 PO PRN ×3 (03:49→21:10)
[2019-06-13] MEDS: SOLU-MEDROL IV SCH ×2 (04:05→13:57)
[2019-06-13] MEDS: PRILOSEC PO SCH (06:10)
[2019-06-13] MEDS ORDERED: DUONEB (A & A) INH SCH (09:00)
[2019-06-13] MEDS: CARAFATE PO SCH ×2 (09:23→21:10)
[2019-06-13] MEDS: TUSSIONEX LIQUID PO SCH ×2 (09:23→21:10)
[2019-06-13] MEDS: VOLTAREN PO SCH ×2 (09:24→21:10)
[2019-06-13] MEDS: PRINZIDE 20/12.5MG PO SCH (09:25)
--- NOTE | 2019-06-13 12:13 | PROGRESS NOTE ---
DATE: 06/13/2019 SUBJECTIVE: Ms Figueroa is admitted with acute bronchitis, not responding to outpatient therapy. She has been given an injection of Rocephin as well as steroids in the office with oral antibiotics and this is going on for about 2 weeks now. She has a persistent severe cough and shortness of breath. She has a chronic smoker. Her PO2 was 49 and pCO2 was 37. She is hypoxic. PLAN: We will start oxygen and continue the current management on her . -7 cc: David Francois MD MTDD
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
[2019-06-13] MEDS: KLONOPIN PO PRN ×2 (13:56→21:09)
[2019-06-13] MEDS: ROCEPHIN 1 GM in NS 50 ML IV SCH (13:57)
[2019-06-13] MEDS: ZITHROMAX 500 MG/NS 500 MG/250 ML IVPB IV SCH (15:40)
[2019-06-13] MEDS: LOVENOX SUBQ SCH (16:01)
[2019-06-13] MEDS: LEXAPRO PO SCH (21:09)
[2019-06-13] MEDS: ASPIRIN PO SCH (21:09)
[2019-06-13] MEDS: LIPITOR PO SCH (21:10)
[2019-06-14] MEDS: SOLU-MEDROL IV SCH ×2 (00:57→16:32)
[2019-06-14] MEDS: DUONEB (A & A) INH SCH ×7 (03:08→23:31)
[2019-06-14] MEDS: PRILOSEC PO SCH (06:08)
[2019-06-14] MEDS: NORCO-7.5 PO PRN ×3 (09:23→22:29)
[2019-06-14] MEDS: TUSSIONEX LIQUID PO SCH (09:24)
[2019-06-14] MEDS: PHENERGAN PO PRN ×2 (09:24→16:19)
[2019-06-14] MEDS: CARAFATE PO SCH ×2 (09:25→22:23)
[2019-06-14] MEDS: PRINZIDE 20/12.5MG PO SCH (09:25)
[2019-06-14] MEDS: VOLTAREN PO SCH ×2 (09:25→22:23)
--- NOTE | 2019-06-14 12:58 | Diag Imaging Result Doc PS360 ---
EXAM: SINUSES INDICATION: sinusitis? TECHNIQUE: 3 views COMPARISON: None. FINDINGS: There is a metallic bracket and screws at the lateral aspect of the right orbit. The paranasal sinuses appear to be grossly clear. No air-fluid levels are identified. The mastoid air cells are clear. The surrounding bony structures are grossly intact. IMPRESSION: Grossly unremarkable plain radiograph of the paranasal sinuses. Electronically signed by Diallo Calle 06/14/2019 12:56 PM
--- NOTE | 2019-06-14 13:07 | PROGRESS NOTE ---
DATE: 06/14/2019 SUBJECTIVE: The patient says she is still coughing some, wanted more cough syrup. She also has had green sinus discharge and probably has a sinusitis. OBJECTIVE: Vital Signs: Blood pressure 116/43, respirations 14, pulse 79, temperature 98.2 degrees Fahrenheit. HEENT: She is normocephalic. EOMS intact. PERRLA. Throat clear. Lungs: Lungs sound clear to auscultation when she is just breathing. When she coughs I do hear some expiratory wheezes. No rhonchi heard. Heart: Regular rate and rhythm without murmurs, gallops, or friction rubs. Abdomen: Soft. Active bowel sounds. No organomegaly or tenderness. Neurological: Intact grossly. ASSESSMENT: 1. Chronic obstructive pulmonary disease exacerbation. 2. Bronchitis. 3. Possible sinusitis. PLAN: We will stop her Tussionex. If she had does have a sinus infection and lung infection then I think there is too much anticholinergic side effects. She is already getting hydrocodone for pain, and with the hydrocodone with the Tussionex and the antihistamine, I do not think this is what she needs at this time. We will get x-ray of her sinuses. May end up needing to order sinus irrigations. We will place her on Mucinex DM 1 p.o. b.i.d. She is still on Solu-Medrol IV. We will continue those treatments and her antibiotics. cc: MD David Mobley Jr, MD
[2019-06-14] MEDS: ZITHROMAX 500 MG/NS 500 MG/250 ML IVPB IV SCH (16:30)
[2019-06-14] MEDS: LOVENOX SUBQ SCH (16:30)
[2019-06-14] MEDS: MUCINEX DM PO SCH ×2 (16:32→22:23)
[2019-06-14] MEDS: KLONOPIN PO PRN ×2 (17:14→22:28)
[2019-06-14] MEDS: ROCEPHIN 1 GM in NS 50 ML IV SCH (17:51)
[2019-06-14] MEDS: ASPIRIN PO SCH (22:23)
[2019-06-14] MEDS: LEXAPRO PO SCH (22:23)
[2019-06-14] MEDS: LIPITOR PO SCH (22:23)
[2019-06-15] MEDS: SOLU-MEDROL IV SCH ×3 (01:16→21:35)
[2019-06-15] MEDS: DUONEB (A & A) INH SCH ×6 (03:01→23:31)
[2019-06-15] MEDS: NORCO-7.5 PO PRN ×3 (09:34→21:34)
[2019-06-15] MEDS: CARAFATE PO SCH ×2 (09:35→21:37)
[2019-06-15] MEDS: VOLTAREN PO SCH ×2 (09:35→21:37)
[2019-06-15] MEDS: MUCINEX DM PO SCH (09:35)
[2019-06-15] MEDS: PHENERGAN PO PRN ×3 (09:35→21:34)
[2019-06-15] MEDS: PRINZIDE 20/12.5MG PO SCH (09:35)
[2019-06-15] MEDS: PRILOSEC PO SCH (09:39)
[2019-06-15] MEDS: KLONOPIN PO PRN ×2 (12:54→21:34)
[2019-06-15] MEDS: ROCEPHIN 1 GM in NS 50 ML IV SCH (12:55)
--- NOTE | 2019-06-15 13:19 | PROGRESS NOTE ---
DATE: 06/15/2019 SUBJECTIVE: Patient continues to have a cough she tells me. She wanted her Tussionex back but I do not really think it is beneficial for her to have so many drying agents as that will dry up her secretions. I was placing her on Mucinex DM and she did not have that listed as an allergy but apparently she is allergic to and it was not given, we are looking for an alternative for that. She does have incentive spirometry. OBJECTIVE: Blood pressure is 136/64, respirations 14, pulse 70, temperature 97.7 degrees Fahrenheit.HEENT: She is normocephalic. EOMs intact. PERRLA. Throat clear. Lungs: Have end- expiratory wheezes and that is probably the cause of her cough. Heart: Regular rate and rhythm without murmurs, gallops, friction rubs. Abdomen: Soft. Active bowel sounds. No organomegaly or tenderness. Neurological: Intact grossly. ASSESSMENT: 1. Chronic obstructive pulmonary disease exacerbation. 2. Bronchitis. 3. Question about sinusitis, she says she has had sinus problems. I asked her she had any green discharge from her nose yesterday and she said yes but today she says no she is just coughing up green. Her sinus x-ray was actually clear. PLAN: We will see if there is an alternative to the Mucinex. If there is not we may have to do without an expectorant. I believe because she still wheezing we should consider increasing her Solu-Medrol a little bit and see if that will not help. cc: MD David Mobley Jr, MD
[2019-06-15] MEDS: ZITHROMAX 500 MG/NS 500 MG/250 ML IVPB IV SCH (14:10)
[2019-06-15] MEDS: LOVENOX SUBQ SCH (17:14)
[2019-06-15] MEDS: LEXAPRO PO SCH (21:34)
[2019-06-15] MEDS: LIPITOR PO SCH (21:35)
[2019-06-15] MEDS: ASPIRIN PO SCH (21:35)
[2019-06-16] MEDS: DUONEB (A & A) INH SCH ×6 (03:56→23:05)
[2019-06-16] MEDS: SOLU-MEDROL IV SCH ×3 (06:01→21:54)
[2019-06-16] MEDS: PRILOSEC PO SCH (06:01)
[2019-06-16] MEDS: CARAFATE PO SCH ×2 (08:24→21:55)
[2019-06-16] MEDS: VOLTAREN PO SCH ×2 (08:24→21:54)
[2019-06-16] MEDS: PRINZIDE 20/12.5MG PO SCH (08:24)
[2019-06-16] MEDS: NORCO-7.5 PO PRN ×2 (08:24→21:54)
[2019-06-16] MEDS: PHENERGAN PO PRN ×2 (08:24→21:54)
[2019-06-16 09:46] LABS: ALLEN TEST YES; BE 1.2 mmoll (-3.0-3.0); BLOOD TYPE ARTERIAL; HCO3-(ACT) 25.8 mmoll (20.0-26.0); METHB 0.6 % (0.0-1.5); MODALITY ROOM AIR; O2(CT) 18.7 mL/dL (15.0-23.0); O2HB 94.3 % (95.0-99.0); PCO2(98.6) 41 mmHg (35-45); PO2(98.6) 73 mmHg (60-100); SAMPLE BLOOD; SAO2 95.8 % (95.0-100.0); THB 14.1 g/dL (11.5-17.4); pH(98.6) 7.41 (7.35-7.45)
--- NOTE | 2019-06-16 09:55 | PROGRESS NOTE ---
DATE: 06/16/2019 Ms. Figueroa is in about the same general condition. Her cough is better. I am going to repeat her arterial blood gases today, and probably discharge her tomorrow. Will continue the IV antibiotics today on her. -7 cc: David Francois MD
[2019-06-16] MEDS: ROCEPHIN 1 GM in NS 50 ML IV SCH (12:03)
[2019-06-16] MEDS: TUSSIONEX LIQUID PO PRN (12:03)
[2019-06-16] MEDS: KLONOPIN PO PRN ×2 (12:30→21:53)
[2019-06-16] MEDS: ZITHROMAX 500 MG/NS 500 MG/250 ML IVPB IV SCH (14:53)
[2019-06-16] MEDS: LOVENOX SUBQ SCH (16:51)
[2019-06-16] MEDS: ASPIRIN PO SCH (21:54)
[2019-06-16] MEDS: LIPITOR PO SCH (21:55)
[2019-06-16] MEDS: LEXAPRO PO SCH (21:55)
[2019-06-17] MEDS: TUSSIONEX LIQUID PO PRN (00:07)
[2019-06-17] MEDS: DUONEB (A & A) INH SCH ×3 (03:36→11:32)
[2019-06-17] MEDS: NORCO-7.5 PO PRN (04:54)
[2019-06-17] MEDS: PHENERGAN PO PRN (04:54)
[2019-06-17] MEDS: PRILOSEC PO SCH (06:19)
[2019-06-17] MEDS: SOLU-MEDROL IV SCH (06:19)
[2019-06-17 08:45] VITALS: BP 128/97
--- NOTE | 2019-06-17 09:32 | PROGRESS NOTE ---
DATE: 06/17/2019 SUBJECTIVE: Ms. Figueroa is doing better. OBJECTIVE: Her lungs are clear. Heart sounds are normal. ASSESSMENT AND PLAN: I am going to discharge her with a prescription of prednisone and discharge her today. -6 cc: David Francois MD
[2019-06-17] MEDS: CARAFATE PO SCH (09:41)
[2019-06-17] MEDS: PRINZIDE 20/12.5MG PO SCH (09:41)
[2019-06-17] MEDS: VOLTAREN PO SCH (09:41)
[2019-06-17] MEDS: KLONOPIN PO PRN (09:41)
--- NOTE | 2019-06-21 13:47 | DISCHARGE SUMMARY ---
ADMISSION DATE: 06/12/2019 DISCHARGE DATE: 06/17/2019 Ms. Figueroa who is a 58-year-old white female was admitted with persistent cough with expectoration, acute bronchitis with some respiratory failure. Laboratory data revealed white count of 17.64, blood gases initially revealed PO2 of 49, repeat PO2 was 73. Her electrolytes are normal. Glucose was 156. AST, ALT were slightly elevated and carboxyhemoglobin was 5.3. Oxygen saturation was 84. COURSE IN THE HOSPITAL: She was treated with IV antibiotics, IV Solu-Medrol was started, cough medicine was given. She continued to improve. Repeat blood gases done is normal. IMPRESSION: Chronic obstructive pulmonary disease with acute exacerbation, acute hypoxemic respiratory failure. The patient will be seen in the office in about 4 to 5 days. She has taken enough antibiotics in last 10 days. I did not prescribe any new antibiotic or cough syrup. cc: David Francois MD MTDD
--- NOTE | 2019-06-25 07:59 | DISCHARGE SUMMARY ---
ADMISSION DATE: 06/12/2019 DISCHARGE DATE: 06/17/2019 ADDENDUM: Ms. Figueroa is a 58-year-old, white female with history of COPD, who was admitted with acute bronchitis. Her lactate level was 1.5. White count was 17,000. She did have sepsis due to acute bronchitis. cc: David Francois MD
== END 2019-06-17 13:25 | disposition home or self-care (01) | DRG 871 ==
LOC: DIRADM 10:23 → EDIPHOLD 11:50 → 1N 17:12
PROVIDERS: ADMIT Internal Medicine; ATTEND Internal Medicine